=== PATIENT | female | born 1960 | race Caucasian/White ===

== ENCOUNTER 2017-07-19 10:16 | Inpatient (IN) | payer OTHER ==
[~2017-07-19] VITALS: Ht 152.4 cm; Wt 76.5 kg
[~2017-07-19 10:16] MED LIST: Aspir 8181 MG PO; CARV25 PO; CLOP75 PO; DOXY100 PO; INSR10I; INSULANPEN SC; LEVEMIR FL100 UNIT/1 SC; LISI5 PO; MORP15ER PO; Novolog Fl100 UNIT/1 SC; OXYC30ER PO; POTCHL20ER PO; ROSU10TA PO; TORSE20 PO; Zithromax250 MG PO
[2017-07-19 11:08] LABS: BASOPHILS ABSOLUTE AUTO 0.06 K/mm3 (0.00-0.23); BASOPHILS PERCENT AUTO 1 % (0-2); EOSINOPHILS ABSOLUTE AUTO 0.07 K/mm3 (0.00-0.68); EOSINOPHILS PERCENT AUTO 1 % (0-6); Hematocrit 35.7 % (33.0-51.0); Hemoglobin 11.4 g/dL (11.5-16.0); IMMATURE GRAN ABSOLUTE AUTO 0.02 K/mm3 (0.00-0.10); IMMATURE GRAN PERCENT AUTO 0 % (0-1); LYMPHOCYTES ABSOLUTE AUTO 1.05 K/mm3 (0.84-5.20); LYMPHOCYTES PERCENT AUTO 12 % (21-46); MONOCYTES ABSOLUTE AUTO 0.76 K/mm3 (0.16-1.47); MONOCYTES PERCENT AUTO 9 % (4-13); Mean Corpuscular HGB 24.6 pg (26.0-34.0); Mean Corpuscular HGB Conc 31.9 g/dL (31.5-36.5); Mean Corpuscular Volume 77 fL (80-100); Mean Platelet Volume 10.2 fL (9.1-12.4); NEUTROPHILS PERCENT AUTO 78 % (41-73); Platelet Count 285 K/mm3 (150-400); Red Blood Cell Count 4.63 M/mm3 (3.80-5.20); White Blood Cell Count 8.86 K/mm3 (4.00-11.30)
[2017-07-19 11:26] LABS: Alanine Aminotransfer (ALT/SGP 15 U/L (12-78); Albumin, Blood 3.2 g/dL (3.4-5.0); Albumin/Globulin Ratio 0.7 (0.8-1.8); Alk Phos 272 U/L (50-136); Anion Gap 7 mmol/L (6-16); Aspartate Aminotrans (AST/SGOT 13 U/L (12-37); Bilirubin, Total 0.5 mg/dL (0.1-1.0); Blood Urea Nitrogen 10 mg/dL (8-24); Bun/Creatinine Ratio 14.2 (12.0-20.0); CO2, Blood 32 mmol/L (21-32); Calcium, Blood 8.6 mg/dL (8.5-10.1); Chloride, Blood 94 mmol/L (98-108); Globulin, Blood 4.5 g/dL (2.2-4.0); Glomerular Filtration Rate >60 (60-); Glucose, Blood 298 mg/dL (70-99); Potassium, Blood 3.5 mmol/L (3.5-5.5); Sodium, Blood 133 mmol/L (136-145); Total Protein, Blood 7.7 g/dL (6.4-8.2)
[2017-07-19 11:38] LABS: Influenza A Negative (NEGATIVE); Influenza B Negative (NEGATIVE)
[2017-07-19] MEDS ORDERED: MORP60ER PO (11:43)
[2017-07-19 14:16] LABS: PCO2 Arterial 43.2 mmHg (35-45); PO2 Arterial 55.3 mmHg (80-100); pH Blood Arterial 7.48 (7.35-7.45)
[2017-07-19] MEDS ORDERED: FURO20 PO (18:31)
[2017-07-19] MEDS ORDERED: POTCHL10ER PO (18:32)
[2017-07-19] MEDS ORDERED: ALBU4 PO (18:33)
[2017-07-20 04:48] LABS: BASOPHILS ABSOLUTE AUTO 0.03 K/mm3 (0.00-0.23); BASOPHILS PERCENT AUTO 0 % (0-2); EOSINOPHILS ABSOLUTE AUTO 0.22 K/mm3 (0.00-0.68); EOSINOPHILS PERCENT AUTO 3 % (0-6); Hematocrit 32.7 % (33.0-51.0); IMMATURE GRAN ABSOLUTE AUTO 0.02 K/mm3 (0.00-0.10); IMMATURE GRAN PERCENT AUTO 0 % (0-1); LYMPHOCYTES ABSOLUTE AUTO 1.06 K/mm3 (0.84-5.20); LYMPHOCYTES PERCENT AUTO 12 % (21-46); MONOCYTES ABSOLUTE AUTO 0.86 K/mm3 (0.16-1.47); MONOCYTES PERCENT AUTO 10 % (4-13); Mean Corpuscular HGB 24.4 pg (26.0-34.0); Mean Corpuscular HGB Conc 30.6 g/dL (31.5-36.5); Mean Corpuscular Volume 80 fL (80-100); Mean Platelet Volume 10.5 fL (9.1-12.4); NEUTROPHILS ABSOLUTE AUTO 6.34 K/mm3 (1.96-9.15); NEUTROPHILS PERCENT AUTO 74 % (41-73); Platelet Count 239 K/mm3 (150-400); RDW Coefficient Variation 18.3 % (11.7-14.2); RDW Standard Deviation 53.9 fL (35.1-46.3); White Blood Cell Count 8.53 K/mm3 (4.00-11.30)
[2017-07-20 05:09] LABS: Anion Gap 7 mmol/L (6-16); Blood Urea Nitrogen 12 mg/dL (8-24); Bun/Creatinine Ratio 16.8 (12.0-20.0); CO2, Blood 29 mmol/L (21-32); Calcium, Blood 8.1 mg/dL (8.5-10.1); Chloride, Blood 102 mmol/L (98-108); Creatinine, Blood 0.72 mg/dL (0.40-1.00); Glomerular Filtration Rate >60 (60-); Glucose, Blood 117 mg/dL (70-99); Potassium, Blood 3.5 mmol/L (3.5-5.5); Sodium, Blood 138 mmol/L (136-145)
[2017-07-21 04:34] LABS: BASOPHILS ABSOLUTE AUTO 0.03 K/mm3 (0.00-0.23); BASOPHILS PERCENT AUTO 0 % (0-2); EOSINOPHILS ABSOLUTE AUTO 0.11 K/mm3 (0.00-0.68); EOSINOPHILS PERCENT AUTO 1 % (0-6); Hematocrit 32.6 % (33.0-51.0); Hemoglobin 10.2 g/dL (11.5-16.0); IMMATURE GRAN ABSOLUTE AUTO 0.04 K/mm3 (0.00-0.10); IMMATURE GRAN PERCENT AUTO 0 % (0-1); LYMPHOCYTES PERCENT AUTO 8 % (21-46); MONOCYTES ABSOLUTE AUTO 0.73 K/mm3 (0.16-1.47); MONOCYTES PERCENT AUTO 7 % (4-13); Mean Corpuscular HGB 24.2 pg (26.0-34.0); Mean Corpuscular HGB Conc 31.3 g/dL (31.5-36.5); Mean Platelet Volume 10.6 fL (9.1-12.4); NEUTROPHILS ABSOLUTE AUTO 9.22 K/mm3 (1.96-9.15); NEUTROPHILS PERCENT AUTO 84 % (41-73); Platelet Count 270 K/mm3 (150-400); RDW Coefficient Variation 18.4 % (11.7-14.2); RDW Standard Deviation 52.6 fL (35.1-46.3); Red Blood Cell Count 4.21 M/mm3 (3.80-5.20); White Blood Cell Count 11.03 K/mm3 (4.00-11.30)
[2017-07-21 04:36] LABS: Mean Corpuscular Volume 77 fL (80-100)
[2017-07-21 04:53] LABS: Anion Gap 6 mmol/L (6-16); Blood Urea Nitrogen 16 mg/dL (8-24); Bun/Creatinine Ratio 21.4 (12.0-20.0); CO2, Blood 31 mmol/L (21-32); Calcium, Blood 8.4 mg/dL (8.5-10.1); Chloride, Blood 98 mmol/L (98-108); Creatinine, Blood 0.75 mg/dL (0.40-1.00); Glomerular Filtration Rate >60 (60-); Glucose, Blood 139 mg/dL (70-99); Magnesium, Blood 1.7 mg/dL (1.6-2.4); Potassium, Blood 3.2 mmol/L (3.5-5.5); Sodium, Blood 135 mmol/L (136-145)
[2017-07-22 05:22] LABS: BASOPHILS ABSOLUTE AUTO 0.01 K/mm3 (0.00-0.23); BASOPHILS PERCENT AUTO 0 % (0-2); EOSINOPHILS PERCENT AUTO 0 % (0-6); Hematocrit 33.7 % (33.0-51.0); Hemoglobin 10.6 g/dL (11.5-16.0); IMMATURE GRAN ABSOLUTE AUTO 0.02 K/mm3 (0.00-0.10); IMMATURE GRAN PERCENT AUTO 0 % (0-1); LYMPHOCYTES ABSOLUTE AUTO 0.73 K/mm3 (0.84-5.20); LYMPHOCYTES PERCENT AUTO 16 % (21-46); MONOCYTES ABSOLUTE AUTO 0.22 K/mm3 (0.16-1.47); MONOCYTES PERCENT AUTO 5 % (4-13); Mean Corpuscular HGB 24.4 pg (26.0-34.0); Mean Corpuscular HGB Conc 31.5 g/dL (31.5-36.5); Mean Corpuscular Volume 78 fL (80-100); Mean Platelet Volume 10.9 fL (9.1-12.4); NEUTROPHILS ABSOLUTE AUTO 3.51 K/mm3 (1.96-9.15); NEUTROPHILS PERCENT AUTO 78 % (41-73); Platelet Count 289 K/mm3 (150-400); RDW Coefficient Variation 17.9 % (11.7-14.2); RDW Standard Deviation 51.7 fL (35.1-46.3); Red Blood Cell Count 4.35 M/mm3 (3.80-5.20); White Blood Cell Count 4.49 K/mm3 (4.00-11.30)
[2017-07-22 05:42] LABS: Anion Gap 9 mmol/L (6-16); Blood Urea Nitrogen 20 mg/dL (8-24); Bun/Creatinine Ratio 27.3 (12.0-20.0); CO2, Blood 31 mmol/L (21-32); Calcium, Blood 8.6 mg/dL (8.5-10.1); Chloride, Blood 95 mmol/L (98-108); Creatinine, Blood 0.73 mg/dL (0.40-1.00); Glomerular Filtration Rate >60 (60-); Glucose, Blood 376 mg/dL (70-99); Potassium, Blood 3.5 mmol/L (3.5-5.5); Sodium, Blood 135 mmol/L (136-145)
[2017-07-23 08:51] LABS: BASOPHILS ABSOLUTE AUTO 0.03 K/mm3 (0.00-0.23); BASOPHILS PERCENT AUTO 0 % (0-2); EOSINOPHILS PERCENT AUTO 0 % (0-6); Hematocrit 35.6 % (33.0-51.0); Hemoglobin 11.3 g/dL (11.5-16.0); Mean Corpuscular HGB 24.1 pg (26.0-34.0); Mean Corpuscular HGB Conc 31.7 g/dL (31.5-36.5); Mean Corpuscular Volume 76 fL (80-100); Platelet Count 383 K/mm3 (150-400); RDW Coefficient Variation 18.3 % (11.7-14.2); RDW Standard Deviation 50.5 fL (35.1-46.3); Red Blood Cell Count 4.68 M/mm3 (3.80-5.20); White Blood Cell Count 13.46 K/mm3 (4.00-11.30)
[2017-07-23 09:18] LABS: Magnesium, Blood 1.7 mg/dL (1.6-2.4)
[2017-07-23 09:20] LABS: Anion Gap 7 mmol/L (6-16); Blood Urea Nitrogen 28 mg/dL (8-24); Bun/Creatinine Ratio 31.3 (12.0-20.0); CO2, Blood 35 mmol/L (21-32); Calcium, Blood 8.9 mg/dL (8.5-10.1); Chloride, Blood 96 mmol/L (98-108); Creatinine, Blood 0.89 mg/dL (0.40-1.00); Glomerular Filtration Rate >60 (60-); Glucose, Blood 165 mg/dL (70-99); Potassium, Blood 3.1 mmol/L (3.5-5.5); Sodium, Blood 138 mmol/L (136-145)
[2017-07-23 09:23] LABS: IMMATURE GRAN ABSOLUTE AUTO 0.11 K/mm3 (0.00-0.10); IMMATURE GRAN PERCENT AUTO 1 % (0-1); LYMPHOCYTES ABSOLUTE AUTO 1.41 K/mm3 (0.84-5.20); LYMPHOCYTES PERCENT AUTO 11 % (21-46); MONOCYTES PERCENT AUTO 5 % (4-13); NEUTROPHILS ABSOLUTE AUTO 11.21 K/mm3 (1.96-9.15); NEUTROPHILS PERCENT AUTO 83 % (41-73)
[2017-07-24 05:16] LABS: BASOPHILS ABSOLUTE AUTO 0.03 K/mm3 (0.00-0.23); BASOPHILS PERCENT AUTO 0 % (0-2); EOSINOPHILS PERCENT AUTO 0 % (0-6); Hematocrit 38.7 % (33.0-51.0); Hemoglobin 12.1 g/dL (11.5-16.0); IMMATURE GRAN ABSOLUTE AUTO 0.31 K/mm3 (0.00-0.10); IMMATURE GRAN PERCENT AUTO 2 % (0-1); LYMPHOCYTES ABSOLUTE AUTO 1.76 K/mm3 (0.84-5.20); LYMPHOCYTES PERCENT AUTO 11 % (21-46); MONOCYTES ABSOLUTE AUTO 1.13 K/mm3 (0.16-1.47); MONOCYTES PERCENT AUTO 7 % (4-13); Mean Corpuscular HGB Conc 31.3 g/dL (31.5-36.5); Mean Corpuscular Volume 77 fL (80-100); Mean Platelet Volume 10.4 fL (9.1-12.4); NEUTROPHILS ABSOLUTE AUTO 12.63 K/mm3 (1.96-9.15); NEUTROPHILS PERCENT AUTO 80 % (41-73); Platelet Count 425 K/mm3 (150-400); RDW Coefficient Variation 18.6 % (11.7-14.2); RDW Standard Deviation 51.6 fL (35.1-46.3); Red Blood Cell Count 5.04 M/mm3 (3.80-5.20); White Blood Cell Count 15.86 K/mm3 (4.00-11.30)
[2017-07-24 05:49] LABS: Bun/Creatinine Ratio 34.3 (12.0-20.0); Calcium, Blood 8.8 mg/dL (8.5-10.1); Creatinine, Blood 1.02 mg/dL (0.40-1.00); Potassium, Blood 2.8 mmol/L (3.5-5.5)
[2017-07-25 05:11] LABS: BASOPHILS ABSOLUTE AUTO 0.05 K/mm3 (0.00-0.23); BASOPHILS PERCENT AUTO 0 % (0-2); EOSINOPHILS ABSOLUTE AUTO 0.04 K/mm3 (0.00-0.68); EOSINOPHILS PERCENT AUTO 0 % (0-6); Hematocrit 37.7 % (33.0-51.0); IMMATURE GRAN ABSOLUTE AUTO 0.48 K/mm3 (0.00-0.10); IMMATURE GRAN PERCENT AUTO 3 % (0-1); LYMPHOCYTES ABSOLUTE AUTO 3.57 K/mm3 (0.84-5.20); LYMPHOCYTES PERCENT AUTO 23 % (21-46); MONOCYTES ABSOLUTE AUTO 1.54 K/mm3 (0.16-1.47); MONOCYTES PERCENT AUTO 10 % (4-13); Mean Corpuscular HGB 24.3 pg (26.0-34.0); Mean Corpuscular HGB Conc 31.8 g/dL (31.5-36.5); Mean Corpuscular Volume 77 fL (80-100); Mean Platelet Volume 10.3 fL (9.1-12.4); NEUTROPHILS ABSOLUTE AUTO 9.78 K/mm3 (1.96-9.15); NEUTROPHILS PERCENT AUTO 63 % (41-73); Platelet Count 407 K/mm3 (150-400); RDW Coefficient Variation 18.8 % (11.7-14.2); RDW Standard Deviation 51.9 fL (35.1-46.3); Red Blood Cell Count 4.93 M/mm3 (3.80-5.20); White Blood Cell Count 15.46 K/mm3 (4.00-11.30)
[2017-07-25 05:22] LABS: Alanine Aminotransfer (ALT/SGP 10 U/L (12-78); Albumin, Blood 2.9 g/dL (3.4-5.0); Albumin/Globulin Ratio 0.7 (0.8-1.8); Alk Phos 164 U/L (50-136); Anion Gap 6 mmol/L (6-16); Aspartate Aminotrans (AST/SGOT 15 U/L (12-37); Bilirubin, Total 0.4 mg/dL (0.1-1.0); Blood Urea Nitrogen 30 mg/dL (8-24); Bun/Creatinine Ratio 33.9 (12.0-20.0); CO2, Blood 35 mmol/L (21-32); Calcium, Blood 8.6 mg/dL (8.5-10.1); Chloride, Blood 100 mmol/L (98-108); Creatinine, Blood 0.88 mg/dL (0.40-1.00); Glomerular Filtration Rate >60 (60-); Glucose, Blood 75 mg/dL (70-99); Potassium, Blood 3.1 mmol/L (3.5-5.5); Sodium, Blood 141 mmol/L (136-145); Total Protein, Blood 6.9 g/dL (6.4-8.2)
[2017-07-26 04:42] LABS: BASOPHILS ABSOLUTE AUTO 0.07 K/mm3 (0.00-0.23); BASOPHILS PERCENT AUTO 1 % (0-2); EOSINOPHILS ABSOLUTE AUTO 0.05 K/mm3 (0.00-0.68); EOSINOPHILS PERCENT AUTO 0 % (0-6); Hematocrit 39.2 % (33.0-51.0); IMMATURE GRAN ABSOLUTE AUTO 0.53 K/mm3 (0.00-0.10); IMMATURE GRAN PERCENT AUTO 4 % (0-1); LYMPHOCYTES ABSOLUTE AUTO 3.06 K/mm3 (0.84-5.20); LYMPHOCYTES PERCENT AUTO 21 % (21-46); MONOCYTES ABSOLUTE AUTO 1.26 K/mm3 (0.16-1.47); MONOCYTES PERCENT AUTO 9 % (4-13); Mean Corpuscular HGB 23.7 pg (26.0-34.0); Mean Corpuscular HGB Conc 30.6 g/dL (31.5-36.5); Mean Corpuscular Volume 78 fL (80-100); Mean Platelet Volume 10.3 fL (9.1-12.4); NEUTROPHILS ABSOLUTE AUTO 9.52 K/mm3 (1.96-9.15); NEUTROPHILS PERCENT AUTO 66 % (41-73); Platelet Count 411 K/mm3 (150-400); RDW Standard Deviation 52.1 fL (35.1-46.3); Red Blood Cell Count 5.06 M/mm3 (3.80-5.20); White Blood Cell Count 14.49 K/mm3 (4.00-11.30)
[2017-07-26 05:10] LABS: Alanine Aminotransfer (ALT/SGP 13 U/L (12-78); Albumin, Blood 2.9 g/dL (3.4-5.0); Albumin/Globulin Ratio 0.7 (0.8-1.8); Alk Phos 151 U/L (50-136); Anion Gap 6 mmol/L (6-16); Aspartate Aminotrans (AST/SGOT 13 U/L (12-37); Bilirubin, Total 0.4 mg/dL (0.1-1.0); Blood Urea Nitrogen 24 mg/dL (8-24); Bun/Creatinine Ratio 28.5 (12.0-20.0); CO2, Blood 34 mmol/L (21-32); Calcium, Blood 8.9 mg/dL (8.5-10.1); Chloride, Blood 100 mmol/L (98-108); Creatinine, Blood 0.84 mg/dL (0.40-1.00); Glomerular Filtration Rate >60 (60-); Glucose, Blood 88 mg/dL (70-99); Potassium, Blood 3.7 mmol/L (3.5-5.5); Sodium, Blood 140 mmol/L (136-145); Total Protein, Blood 6.9 g/dL (6.4-8.2)
[2017-07-27 05:14] LABS: BASOPHILS ABSOLUTE AUTO 0.04 K/mm3 (0.00-0.23); BASOPHILS PERCENT AUTO 0 % (0-2); EOSINOPHILS ABSOLUTE AUTO 0.13 K/mm3 (0.00-0.68); EOSINOPHILS PERCENT AUTO 1 % (0-6); Hematocrit 35.8 % (33.0-51.0); Hemoglobin 11.1 g/dL (11.5-16.0); IMMATURE GRAN ABSOLUTE AUTO 0.56 K/mm3 (0.00-0.10); IMMATURE GRAN PERCENT AUTO 4 % (0-1); LYMPHOCYTES ABSOLUTE AUTO 3.52 K/mm3 (0.84-5.20); LYMPHOCYTES PERCENT AUTO 24 % (21-46); MONOCYTES ABSOLUTE AUTO 1.34 K/mm3 (0.16-1.47); MONOCYTES PERCENT AUTO 9 % (4-13); Mean Corpuscular HGB 23.8 pg (26.0-34.0); Mean Corpuscular Volume 77 fL (80-100); Mean Platelet Volume 10.5 fL (9.1-12.4); NEUTROPHILS ABSOLUTE AUTO 9.21 K/mm3 (1.96-9.15); NEUTROPHILS PERCENT AUTO 62 % (41-73); Platelet Count 391 K/mm3 (150-400); RDW Coefficient Variation 19.4 % (11.7-14.2); RDW Standard Deviation 53.5 fL (35.1-46.3); Red Blood Cell Count 4.66 M/mm3 (3.80-5.20)
[2017-07-27 06:06] LABS: Anion Gap 7 mmol/L (6-16); Blood Urea Nitrogen 26 mg/dL (8-24); Bun/Creatinine Ratio 29.6 (12.0-20.0); CO2, Blood 32 mmol/L (21-32); Calcium, Blood 8.7 mg/dL (8.5-10.1); Chloride, Blood 96 mmol/L (98-108); Creatinine, Blood 0.88 mg/dL (0.40-1.00); Glomerular Filtration Rate >60 (60-); Glucose, Blood 230 mg/dL (70-99); Potassium, Blood 4.4 mmol/L (3.5-5.5); Sodium, Blood 135 mmol/L (136-145)
[2017-07-28] MEDS ORDERED: GUAI600T33 PO (11:15)
[2017-07-28] MEDS ORDERED: AZIT500 PO (11:15)
[2017-07-28] MEDS ORDERED: HYDRA50 PO (11:16)
[2017-07-28] MEDS ORDERED: LEVO750 PO (11:16)
[2017-07-28] MEDS ORDERED: GAVILAX17 GM PO (11:17)
[2017-07-28] MEDS ORDERED: PRED20 PO (11:18)
[2017-07-28] MEDS ORDERED: PANT40 PO (11:18)
[2017-07-28] MEDS ORDERED: SPIR25 PO (11:20)
[2017-07-28] MEDS ORDERED: ONDA4ODT PO (12:36)
== END 2017-07-28 13:15 | disposition home or self-care (01) | DRG 291 ==
LOC: ER 10:16 → ERHOLD 13:39 → PCU 13:39 → MEDS 13:39 → PCU 17:01 → MEDS 07-23 17:19 → ENPENDDIS 07-28 11:34 → MEDS 07-28 13:15
PROVIDERS: Emergency Medicine; Internal Medicine
PROC: 3E0234Z Introduction of Serum, Toxoid and Vaccine into Muscle, Percutaneous Approach (ICD-10-PCS; principal; 2017-07-19)
DX: I11.0 Hypertensive heart disease with heart failure (principal); J18.9 Pneumonia, unspecified organism; J96.00 Acute respiratory failure, unspecified whether with hypoxia or hypercapnia; E11.40 Type 2 diabetes mellitus with diabetic neuropathy, unspecified; M35.00 Sjogren syndrome, unspecified; J42 Unspecified chronic bronchitis; I50.30 Unspecified diastolic (congestive) heart failure; E11.9 Type 2 diabetes mellitus without complications; D86.9 Sarcoidosis, unspecified; R00.1 Bradycardia, unspecified; G89.4 Chronic pain syndrome; E87.6 Hypokalemia; Z86.73 Personal history of transient ischemic attack (TIA), and cerebral infarction without residual deficits; Z23 Encounter for immunization
CPT/HCPCS: 36415; 36600; 71045; 71046; 80048; 80053; 82803; 82947; 83036; 83605; 83735; 83880; 85025; 87040; 87804; 90670; 93005; 93010; 93308; 93321; 94640; 94644; 94760; 94762; 96361; 96365; 96366; 99285; J0360; J1650; J1815; J1940; J1956; J2001; J2930; J3480; J7030; J7050

== ENCOUNTER 2017-08-02 15:33 | Emergency (ER) | payer OTHER ==
[~2017-08-02] VITALS: Ht 152.4 cm; Wt 69.0 kg
[~2017-08-02 15:33] MED LIST changes: +ALBU4 PO; +AZIT500 PO; +FURO20 PO; +GAVILAX17 GM PO; +GUAI600T33 PO; +HYDRA50 PO; +LEVO750 PO; +MORP60ER PO; +ONDA4ODT PO; +PANT40 PO; +POTCHL10ER PO; +PRED20 PO; +SPIR25 PO
[2017-08-02 16:41] LABS: BASOPHILS ABSOLUTE AUTO 0.01 K/mm3 (0.00-0.23); BASOPHILS PERCENT AUTO 0 % (0-2); EOSINOPHILS PERCENT AUTO 0 % (0-6); Hematocrit 38.8 % (33.0-51.0); Hemoglobin 11.9 g/dL (11.5-16.0); IMMATURE GRAN ABSOLUTE AUTO 0.07 K/mm3 (0.00-0.10); IMMATURE GRAN PERCENT AUTO 1 % (0-1); LYMPHOCYTES ABSOLUTE AUTO 0.75 K/mm3 (0.84-5.20); LYMPHOCYTES PERCENT AUTO 6 % (21-46); MONOCYTES ABSOLUTE AUTO 0.67 K/mm3 (0.16-1.47); MONOCYTES PERCENT AUTO 5 % (4-13); Mean Corpuscular HGB 24.2 pg (26.0-34.0); Mean Corpuscular HGB Conc 30.7 g/dL (31.5-36.5); Mean Corpuscular Volume 79 fL (80-100); Mean Platelet Volume 10.4 fL (9.1-12.4); NEUTROPHILS ABSOLUTE AUTO 11.25 K/mm3 (1.96-9.15); NEUTROPHILS PERCENT AUTO 88 % (41-73); Platelet Count 348 K/mm3 (150-400); RDW Coefficient Variation 19.7 % (11.7-14.2); RDW Standard Deviation 55.2 fL (35.1-46.3); Red Blood Cell Count 4.92 M/mm3 (3.80-5.20); White Blood Cell Count 12.75 K/mm3 (4.00-11.30)
[2017-08-02 17:24] LABS: Albumin, Blood 3.3 g/dL (3.4-5.0); Albumin/Globulin Ratio 0.8 (0.8-1.8); Bilirubin, Total 0.3 mg/dL (0.1-1.0); Bun/Creatinine Ratio 30.5 (12.0-20.0); Calcium, Blood 8.8 mg/dL (8.5-10.1); Creatinine, Blood 1.18 mg/dL (0.40-1.00); Potassium, Blood 4.5 mmol/L (3.5-5.5); Total Protein, Blood 7.3 g/dL (6.4-8.2)
== END 2017-08-02 19:31 | disposition home or self-care (01) ==
LOC: ER 15:33
PROVIDERS: Emergency Medicine
DX: E10.65 Type 1 diabetes mellitus with hyperglycemia (principal); J18.9 Pneumonia, unspecified organism; E10.40 Type 1 diabetes mellitus with diabetic neuropathy, unspecified; I11.0 Hypertensive heart disease with heart failure; I50.9 Heart failure, unspecified; Z88.8 Allergy status to other drugs, medicaments and biological substances; Z79.899 Other long term (current) drug therapy; Z79.82 Long term (current) use of aspirin; Z79.4 Long term (current) use of insulin; Z79.52 Long term (current) use of systemic steroids; Z86.73 Personal history of transient ischemic attack (TIA), and cerebral infarction without residual deficits
CPT/HCPCS: 36415; 71046; 80053; 82947; 85025; 96360; 99283; J1815; J7030

== ENCOUNTER → 2019-04-28 | Outpatient (CLI) | payer OTHER ==
[2019-04-28 13:51] LABS: BASOPHILS PERCENT AUTO 1 % (0-2); EOSINOPHILS ABSOLUTE AUTO 0.46 K/mm3 (0.00-0.68); EOSINOPHILS PERCENT AUTO 4 % (0-6); Hematocrit 44.2 % (33.0-51.0); Hemoglobin 14.2 g/dL (11.5-16.0); IMMATURE GRAN ABSOLUTE AUTO 0.04 K/mm3 (0.00-0.10); IMMATURE GRAN PERCENT AUTO 0 % (0-1); LYMPHOCYTES ABSOLUTE AUTO 2.48 K/mm3 (0.84-5.20); LYMPHOCYTES PERCENT AUTO 20 % (21-46); MONOCYTES ABSOLUTE AUTO 0.85 K/mm3 (0.16-1.47); MONOCYTES PERCENT AUTO 7 % (4-13); Mean Corpuscular HGB 28.1 pg (26.0-34.0); Mean Corpuscular HGB Conc 32.1 g/dL (31.5-36.5); Mean Corpuscular Volume 87 fL (80-100); Mean Platelet Volume 11.2 fL (9.1-12.4); NEUTROPHILS ABSOLUTE AUTO 8.33 K/mm3 (1.96-9.15); NEUTROPHILS PERCENT AUTO 68 % (41-73); Platelet Count 291 K/mm3 (150-400); RDW Coefficient Variation 15.9 % (11.7-14.2); RDW Standard Deviation 50.3 fL (35.1-46.3); Red Blood Cell Count 5.06 M/mm3 (3.80-5.20); White Blood Cell Count 12.26 K/mm3 (4.00-11.30)
[2019-04-28 14:07] LABS: Albumin, Blood 3.4 g/dL (3.4-5.0); Albumin/Globulin Ratio 0.7 (0.8-1.8); Bilirubin, Total 0.4 mg/dL (0.1-1.0); Bun/Creatinine Ratio 18.5 (12.0-20.0); Calcium, Blood 9.3 mg/dL (8.5-10.1); Creatinine, Blood 1.08 mg/dL (0.40-1.00); Globulin, Blood 4.6 g/dL (2.2-4.0); Potassium, Blood 3.5 mmol/L (3.5-5.5)
[2019-04-28 14:36] LABS: Troponin I 0.044 ng/mL (0.000-0.040)
== END ==
LOC: LAB SHORT 13:47 → LAB EV 13:47
PROVIDERS: Emergency Medicine
DX: R60.9 Edema, unspecified (principal); R94.31 Abnormal electrocardiogram [ECG] [EKG]
CPT/HCPCS: 80053; 83880; 84484; 85025

== ENCOUNTER 2019-06-08 07:56 | Day surgery (SDC) | payer OTHER ==
[~2019-06-08 07:56] MED LIST changes: +HYDRA25 PO; -HYDRA50 PO; +MORP30 PO; -MORP60ER PO; -OXYC30ER PO; +Oxycodone HCl20 M1 PO; +POTA10T PO; -POTCHL10ER PO
--- NOTE | 2019-06-08 08:34 | NUR ---
PATIENT PRESENTS TODAY WITH NEW ONSET LUNG ILLNESS SINCE SATURDAY A.M. STATES HISTORY OF SEVERE LUNG ILLNESS WHEN GETS SICK. PATIENT DESIRES TO CONTINUE, RADILOGY CONSULTED AND WE'LL PROCEED SINCE PATIENT IS NOT TACHYCARDIC. IT IS OF NOTE THAT PATIENT'S B/P IS SOMEWHAT ELEVATED THIS A.M., PATIENT STATES SHE WILL TAKE HER B/P MEDICATION SOON SHE GETS HOME. PATIENT STATES HER BLOOD SUGAR WAS 112 THIS A.M. ABOUT 0600 THIS MORNING, HAD BEEN LOW AT 53 AROUND 2000 LAST NIGHT, PATIENT ATE SOME PEANUT BUTTER CRACKERS AND FEELS BETTER NOW. PATIENT IS TYPE I DIABETIC.
--- NOTE | 2019-06-08 09:31 | NUR ---
Discharge instructions reviewed with patient. Patient verbalizes understanding. Copy given to patient to take home. PATIENT DISCHARGED AMBULATORY WITHOUT DIFFICULTY.
[2019-07-30] MEDS ORDERED: TORSE20 PO (16:36)
[2019-07-30] MEDS ORDERED: Humalog100 UNIT/1 SC (16:41)
[2019-07-30] MEDS ORDERED: INSULANPEN SC (16:42)
[2019-07-30] MEDS ORDERED: VENTOLIN HFA INH (16:44)
[2019-07-30] MEDS ORDERED: METO25ER PO (16:47)
[2019-07-30] MEDS ORDERED: NITR.4SL SL (16:50)
[2019-07-30] MEDS ORDERED: NITROGLYCERIN PATCH TOP (16:50)
[2019-07-30] MEDS ORDERED: EZET10 PO (16:50)
== END 2019-06-08 22:59 | disposition home or self-care (01) ==
LOC: CT 07:56 → ORD 07:56 → CT 09:00
DX: R07.9 Chest pain, unspecified (principal); I65.23 Occlusion and stenosis of bilateral carotid arteries; I44.0 Atrioventricular block, first degree; I13.0 Hypertensive heart and chronic kidney disease with heart failure and stage 1 through stage 4 chronic kidney disease, or unspecified chronic kidney disease; E10.22 Type 1 diabetes mellitus with diabetic chronic kidney disease; N18.9 Chronic kidney disease, unspecified; I50.9 Heart failure, unspecified; I25.10 Atherosclerotic heart disease of native coronary artery without angina pectoris; E78.5 Hyperlipidemia, unspecified; E10.42 Type 1 diabetes mellitus with diabetic polyneuropathy; Z86.73 Personal history of transient ischemic attack (TIA), and cerebral infarction without residual deficits; Z79.4 Long term (current) use of insulin; Z79.82 Long term (current) use of aspirin; Z79.02 Long term (current) use of antithrombotics/antiplatelets; Z79.51 Long term (current) use of inhaled steroids; Z79.899 Other long term (current) drug therapy; Z88.8 Allergy status to other drugs, medicaments and biological substances
CPT/HCPCS: 75574; Q9967

== ENCOUNTER → 2020-06-27 | Outpatient (CLI) | payer OTHER ==
[~2020-06-27] MED LIST changes: +EZET10 PO; +Humalog100 UNIT/1 SC; +METO25ER PO; +NITR.4SL SL; +NITROGLYCERIN PATCH TOP; +VENTOLIN HFA INH
[2020-06-27 19:10] LABS: Appearance, Urine Hazy (Clear); Bilirubin, Urine Neg (Neg); Blood, Urine 1+ (Neg); Color, Urine Yellow (P-Yellow); Glucose Qualitative, Urine 1+ (Neg); Ketones, Urine Neg (Neg); Leukocyte Esterase, Urine 3+ (Neg); Nitrite, Urine Neg (Neg); Protein, Urine 2+ (Neg); Urobilinogen, Urine NORM (Normal)
[2020-06-27 19:27] LABS: Bacteria Few /hpf; Red Blood Cells, Urine 0-2 /hpf (0-2); Squamous Epithelial Cells Few /hpf (Few)
[2020-06-27 20:12] LABS: Protein, Urine Random 24.5 mg/dL (0.0-11.9)
[2020-06-27 20:26] LABS: Creatinine, Urine Random 14.9 mg/dL (27.00-270.00); Protein/Creat Ratio, Ur Random 1.6
== END | disposition home or self-care (01) ==
LOC: LAB SHORT 18:11
PROVIDERS: Internal Medicine
DX: N17.9 Acute kidney failure, unspecified (principal); N18.31 Chronic kidney disease, stage 3a
CPT/HCPCS: 81001; 82570; 84156

== ENCOUNTER → 2021-03-24 | Outpatient (CLI) | payer OTHER ==
[2021-03-24 12:45] LABS: Creatinine, Urine Random 67.3 mg/dL (27.00-270.00)
[2021-03-24 13:10] LABS: Microalb/Creat Ratio UR, Rand 826.152 mg/g (0.000-30.000)
== END | disposition home or self-care (01) ==
LOC: LAB SHORT 09:55
PROVIDERS: Internal Medicine Endocrinology, Diabetes & Metabolism
DX: E10.65 Type 1 diabetes mellitus with hyperglycemia (principal)
CPT/HCPCS: 82043; 82570

== ENCOUNTER 2021-06-26 09:30 | Day surgery (SDC) | payer OTHER ==
[~2021-06-26] VITALS: Ht 154.9 cm; Wt 84.6 kg
[2021-06-26] MEDS ORDERED: NOVOLOG100 UNIT/2 (10:11)
== END 2021-06-26 12:47 | disposition home or self-care (01) ==
LOC: ORSCSDS 09:30
PROVIDERS: Student in an Organized Health Care Education/Training Program
PROC: 0D758ZZ Dilation of Esophagus, Via Natural or Artificial Opening Endoscopic (ICD-10-PCS; principal; 2021-06-26 12:30)
PROC: 0DB78ZX Excision of Stomach, Pylorus, Via Natural or Artificial Opening Endoscopic, Diagnostic (ICD-10-PCS; principal; 2021-06-26 12:30)
DX: R13.14 Dysphagia, pharyngoesophageal phase (principal); K29.70 Gastritis, unspecified, without bleeding; Q39.4 Esophageal web; I10 Essential (primary) hypertension; E78.5 Hyperlipidemia, unspecified; I25.10 Atherosclerotic heart disease of native coronary artery without angina pectoris; E11.9 Type 2 diabetes mellitus without complications; Z86.73 Personal history of transient ischemic attack (TIA), and cerebral infarction without residual deficits; Z79.899 Other long term (current) drug therapy; Z79.02 Long term (current) use of antithrombotics/antiplatelets; Z79.82 Long term (current) use of aspirin; Z79.4 Long term (current) use of insulin
CPT/HCPCS: 82947; 88305; 88342; C1726; J2704; J7120

== ENCOUNTER → 2021-11-02 | Outpatient (CLI) | payer OTHER ==
[~2021-11-02] MED LIST changes: +NOVOLOG100 UNIT/2
[2021-11-03 08:53] LABS: Stool Occult Bld Immuno 1 Positive (NEGATIVE)
== END | disposition home or self-care (01) ==
LOC: LAB SHORT 12:50 → LAB 12:50
PROVIDERS: Internal Medicine
DX: Z12.11 Encounter for screening for malignant neoplasm of colon (principal)
CPT/HCPCS: 82274

== ENCOUNTER 2022-03-03 13:31 | Emergency (ER) | payer OTHER ==
[~2022-03-03] VITALS: Ht 152.4 cm; Wt 77.1 kg
[~2022-03-03 13:31] MED LIST changes: -CEPH500 PO
[2022-03-03 14:04] LABS: Source, Urine Clean Catch
[2022-03-03 14:12] LABS: Appearance, Urine Clear (Clear); Bilirubin, Urine Neg (Neg); Blood, Urine 3+ (Neg); Glucose Qualitative, Urine 2+ (Neg); Ketones, Urine Neg (Neg); Leukocyte Esterase, Urine Neg (Neg); Nitrite, Urine Neg (Neg); Protein, Urine 4+ (Neg); Specific Gravity, Urine 1.015 (1.003-1.022); Urobilinogen, Urine NORM (Normal)
[2022-03-03 14:20] LABS: Albumin, Blood 3.7 g/dL (3.4-5.0); Albumin/Globulin Ratio 0.7 (0.8-1.8); Bilirubin, Total 0.6 mg/dL (0.1-1.0); Bun/Creatinine Ratio 13.8 (12.0-20.0); Calcium, Blood 9.8 mg/dL (8.5-10.1); Creatinine, Blood 0.58 mg/dL (0.40-1.00); Globulin, Blood 5.4 g/dL (2.2-4.0); Magnesium, Blood 1.3 mg/dL (1.6-2.4); Potassium, Blood 3.5 mmol/L (3.5-5.5); Total Protein, Blood 9.1 g/dL (6.4-8.2)
[2022-03-03 14:31] LABS: International Normalized Ratio 1.09; Prothrombin Time Results 11.4 Sec (9.7-11.5)
[2022-03-03 14:35] LABS: Color, Urine Pale Yellow (P-Yellow)
[2022-03-03 14:35] LABS: BASOPHILS ABSOLUTE AUTO 0.09 K/mm3 (0.00-0.23); BASOPHILS PERCENT AUTO 1 % (0-2); EOSINOPHILS ABSOLUTE AUTO 0.07 K/mm3 (0.00-0.68); EOSINOPHILS PERCENT AUTO 1 % (0-6); Hematocrit 47.4 % (33.0-51.0); Hemoglobin 15.7 g/dL (11.5-16.0); IMMATURE GRAN ABSOLUTE AUTO 0.04 K/mm3 (0.00-0.10); IMMATURE GRAN PERCENT AUTO 0 % (0-1); LYMPHOCYTES ABSOLUTE AUTO 1.39 K/mm3 (0.84-5.20); LYMPHOCYTES PERCENT AUTO 12 % (21-46); MONOCYTES ABSOLUTE AUTO 0.78 K/mm3 (0.16-1.47); MONOCYTES PERCENT AUTO 7 % (4-13); Mean Corpuscular HGB Conc 33.1 g/dL (31.5-36.5); Mean Corpuscular Volume 91 fL (80-100); NEUTROPHILS ABSOLUTE AUTO 9.35 K/mm3 (1.96-9.15); NEUTROPHILS PERCENT AUTO 80 % (41-73); Platelet Count 318 K/mm3 (150-400); RDW Coefficient Variation 15.8 % (11.7-14.2); RDW Standard Deviation 53.1 fL (35.1-46.3); Red Blood Cell Count 5.24 M/mm3 (3.80-5.20); White Blood Cell Count 11.72 K/mm3 (4.00-11.30)
[2022-03-03 14:56] LABS: Bacteria Few /hpf; Hyaline Casts 0-2 /lpf (0-2); Squamous Epithelial Cells Few /hpf (Few)
[2022-03-03] MEDS ORDERED: CEPH500 PO (16:22)
== END 2022-03-03 19:22 | disposition home or self-care (01) ==
LOC: ER 13:31
PROVIDERS: Emergency Medicine
DX: I11.0 Hypertensive heart disease with heart failure (principal); I50.9 Heart failure, unspecified; E10.9 Type 1 diabetes mellitus without complications; N19 Unspecified kidney failure; Z86.73 Personal history of transient ischemic attack (TIA), and cerebral infarction without residual deficits; Z79.899 Other long term (current) drug therapy; Z79.52 Long term (current) use of systemic steroids; Z79.4 Long term (current) use of insulin
CPT/HCPCS: 36415; 70450; 70496; 70498; 71045; 80053; 81001; 83605; 83690; 83735; 85025; 85610; 85730; J0360; J0696; J2270; J2405; J7030; Q9967

== ENCOUNTER → 2022-03-03 | Outpatient (CLI) | payer OTHER ==
[~2022-03-03] MED LIST changes: +CEPH500 PO
[2022-03-03 13:40] LABS: BASOPHILS ABSOLUTE AUTO 0.08 K/mm3 (0.00-0.23); BASOPHILS PERCENT AUTO 1 % (0-2); EOSINOPHILS ABSOLUTE AUTO 0.12 K/mm3 (0.00-0.68); EOSINOPHILS PERCENT AUTO 1 % (0-6); Hematocrit 46.5 % (33.0-51.0); IMMATURE GRAN ABSOLUTE AUTO 0.05 K/mm3 (0.00-0.10); IMMATURE GRAN PERCENT AUTO 0 % (0-1); LYMPHOCYTES ABSOLUTE AUTO 1.23 K/mm3 (0.84-5.20); LYMPHOCYTES PERCENT AUTO 11 % (21-46); MONOCYTES ABSOLUTE AUTO 0.78 K/mm3 (0.16-1.47); MONOCYTES PERCENT AUTO 7 % (4-13); Mean Corpuscular HGB 29.8 pg (26.0-34.0); Mean Corpuscular HGB Conc 32.3 g/dL (31.5-36.5); Mean Corpuscular Volume 92 fL (80-100); Mean Platelet Volume 10.8 fL (9.1-12.4); NEUTROPHILS ABSOLUTE AUTO 8.99 K/mm3 (1.96-9.15); NEUTROPHILS PERCENT AUTO 80 % (41-73); Platelet Count 302 K/mm3 (150-400); RDW Standard Deviation 54.2 fL (35.1-46.3); Red Blood Cell Count 5.04 M/mm3 (3.80-5.20); White Blood Cell Count 11.25 K/mm3 (4.00-11.30)
[2022-03-03 14:09] LABS: Bun/Creatinine Ratio 10.2 (12.0-20.0); Calcium, Blood 9.4 mg/dL (8.5-10.1); Creatinine, Blood 0.88 mg/dL (0.40-1.00); Potassium, Blood 2.9 mmol/L (3.5-5.5)
== END ==
LOC: LAB SHORT 13:26 → LAB 13:26
PROVIDERS: Physician Assistant Surgical
DX: R07.9 Chest pain, unspecified (principal); R53.83 Other fatigue
CPT/HCPCS: 80048; 84443; 85025

== ENCOUNTER → 2023-01-31 | Outpatient (CLI) | payer OTHER ==
[~2023-01-31] MED LIST changes: +CEPH500 PO
== END ==
LOC: LAB SHORT 13:52 → LAB 13:52
DX: N18.32 Chronic kidney disease, stage 3b (principal)
CPT/HCPCS: 83970

== ENCOUNTER → 2023-03-25 | Outpatient (CLI) | payer OTHER ==
[2023-03-25 17:48] LABS: BASOPHILS ABSOLUTE AUTO 0.13 K/mm3 (0.00-0.23); BASOPHILS PERCENT AUTO 1 % (0-2); EOSINOPHILS PERCENT AUTO 1 % (0-6); Hematocrit 43.7 % (33.0-51.0); Hemoglobin 14.3 g/dL (11.5-16.0); Mean Corpuscular HGB 29.9 pg (26.0-34.0); Mean Corpuscular HGB Conc 32.7 g/dL (31.5-36.5); Mean Corpuscular Volume 91 fL (80-100); RDW Coefficient Variation 15.9 % (11.7-14.2); RDW Standard Deviation 52.9 fL (35.1-46.3); Red Blood Cell Count 4.79 M/mm3 (3.80-5.20); White Blood Cell Count 11.67 K/mm3 (4.00-11.30)
[2023-03-25 17:49] LABS: IMMATURE GRAN ABSOLUTE AUTO 0.45 K/mm3 (0.00-0.10); IMMATURE GRAN PERCENT AUTO 4 % (0-1); LYMPHOCYTES PERCENT AUTO 15 % (21-46); MONOCYTES ABSOLUTE AUTO 1.43 K/mm3 (0.16-1.47); MONOCYTES PERCENT AUTO 12 % (4-13); Mean Platelet Volume 10.7 fL (9.1-12.4); NEUTROPHILS ABSOLUTE AUTO 7.76 K/mm3 (1.96-9.15); NEUTROPHILS PERCENT AUTO 66 % (41-73); Platelet Count 335 K/mm3 (150-400)
[2023-03-25 17:57] LABS: Albumin, Blood 3.1 g/dL (3.4-5.0); Albumin/Globulin Ratio 0.6 (0.8-1.8); Bilirubin, Total 0.4 mg/dL (0.1-1.0); Bun/Creatinine Ratio 22.4 (12.0-20.0); Calcium, Blood 9.7 mg/dL (8.5-10.1); Creatinine, Blood 1.56 mg/dL (0.40-1.00); Globulin, Blood 4.9 g/dL (2.2-4.0); Potassium, Blood 5.1 mmol/L (3.5-5.5)
== END ==
LOC: LAB 17:44 → LAB SHORT 17:44
PROVIDERS: Family Medicine
DX: R11.2 Nausea with vomiting, unspecified (principal)
CPT/HCPCS: 80053; 85025

== ENCOUNTER → 2023-05-27 | Outpatient (CLI) | payer OTHER ==
[2023-05-27 19:54] LABS: Adenovirus F 40/41 Not Detected (NOT DETECT); Astrovirus Not Detected (NOT DETECT); Campylobacter Sp Not Detected (NOT DETECT); Cryptosporidium Not Detected (NOT DETECT); Cyclospora Cayetanensis Not Detected (NOT DETECT); E. Coli O157 Not Detected (NOT DETECT); Entamoeba Histolytica Not Detected (NOT DETECT); Enteroaggregative E. coli-EAEC Not Detected (NOT DETECT); Enteropathogenic E. coli-EPEC Not Detected (NOT DETECT); Enterotoxigenic E. coli-ETEC Not Detected (NOT DETECT); Giardia Lamblia Not Detected (NOT DETECT); Norovirus GI/GII Not Detected (NOT DETECT); Plesiomonas Shigelloides Not Detected (NOT DETECT); Rotavirus A Not Detected (NOT DETECT); Salmonella Sp Not Detected (NOT DETECT); Sapovirus Not Detected (NOT DETECT); Shiga Toxin-prod E. coli-STEC Not Detected (NOT DETECT); Shigella/Enteroin E. coli-EIEC Not Detected (NOT DETECT); Vibrio Cholerae Not Detected (NOT DETECT); Vibrio Sp Not Detected (NOT DETECT); Yersinia Enterocolitica Not Detected (NOT DETECT)
== END | disposition home or self-care (01) ==
LOC: LAB SHORT 16:26 → LAB 16:26
PROVIDERS: Internal Medicine
DX: K52.9 Noninfective gastroenteritis and colitis, unspecified (principal)
CPT/HCPCS: 87507; 89055

== ENCOUNTER 2023-10-14 10:02 | Day surgery (SDC) | payer OTHER ==
[~2023-10-14] VITALS: Ht 152.4 cm; Wt 75.7 kg
[~2023-10-14 10:02] MED LIST changes: +BUPR75 PO
[2023-10-14] MEDS ORDERED: Lactated Ringer's 1,000 ML IV SCH (10:30)
[2023-10-14 10:50] VITALS: BP 221/86
[2023-10-14 10:52] VITALS: BP 211/88
[2023-10-14] MEDS ORDERED: DILT120 PO (11:16)
[2023-10-14] MEDS ORDERED: LANTUS SOL100 UNIT/1 SQ (11:19)
--- NOTE | 2023-10-14 11:21 | NUR ---
Ambulatory in Day Surgery Patient confirms NPO status and agrees with scheduled surgery. Patient States Post-Procedure ride home has been arranged. Pre-Op teaching done. Pt verbalizes understanding. History, Chart, Medications and Allergies reviewed before start of procedure.
[2023-10-14] MEDS ORDERED: Dextrose 50% 50 ML Syringe IV ONE (11:25)
[2023-10-14] MEDS ORDERED: Dextrose 5% 250 ML IV ONE ×2 (11:26→11:30)
[2023-10-14] MEDS ORDERED: propofoL 40 ML IV ONE (11:30)
--- NOTE | 2023-10-14 11:36 | NUR ---
10/14/23 1136 Camelia Tomlinson History, Chart, Medications and Allergies reviewed before start of procedure.INA SCHMID PROVIDING ANESTHESIA, SEE RECORD
[2023-10-14 12:05] VITALS: BP 171/82
[2023-10-14 12:15] VITALS: BP 184/83
--- NOTE | 2023-10-14 12:44 | NUR ---
1230- PATIENT UP TO DRESS AND AMBULATE TO BR. GAIT STEADY. NO C/O VERBALIZED. RIDE ARRANGED HOME WITH PATIENT'S FRIEND, OZ. Discharge instructions reviewed with patient. Patient verbalizes understanding. Copy given to patient to take home. Patient confirms follow-up appointment with Dr. Chaudhary.
== END 2023-10-14 12:39 | disposition home or self-care (01) ==
LOC: ORSCMMR 10:02 → ORD 11:30 → ORSCMMR 11:45
PROVIDERS: Internal Medicine Gastroenterology
PROC: 0DBM8ZX Excision of Descending Colon, Via Natural or Artificial Opening Endoscopic, Diagnostic (ICD-10-PCS; principal; 2023-10-14 11:45)
PROC: 0DBN8ZX Excision of Sigmoid Colon, Via Natural or Artificial Opening Endoscopic, Diagnostic (ICD-10-PCS; principal; 2023-10-14 11:45)
PROC: 0DBL8ZX Excision of Transverse Colon, Via Natural or Artificial Opening Endoscopic, Diagnostic (ICD-10-PCS; principal; 2023-10-14 11:45)
PROC: 0DBK8ZX Excision of Ascending Colon, Via Natural or Artificial Opening Endoscopic, Diagnostic (ICD-10-PCS; principal; 2023-10-14 11:45)
PROC: 0DBC8ZX Excision of Ileocecal Valve, Via Natural or Artificial Opening Endoscopic, Diagnostic (ICD-10-PCS; principal; 2023-10-14 11:45)
DX: R93.5 Abnormal findings on diagnostic imaging of other abdominal regions, including retroperitoneum (principal); R10.9 Unspecified abdominal pain; K52.9 Noninfective gastroenteritis and colitis, unspecified; I10 Essential (primary) hypertension; D86.9 Sarcoidosis, unspecified; I25.10 Atherosclerotic heart disease of native coronary artery without angina pectoris; Z86.73 Personal history of transient ischemic attack (TIA), and cerebral infarction without residual deficits; K74.60 Unspecified cirrhosis of liver; E10.8 Type 1 diabetes mellitus with unspecified complications; E66.9 Obesity, unspecified; Z68.32 Body mass index [BMI] 32.0-32.9, adult; Z79.4 Long term (current) use of insulin; Z79.899 Other long term (current) drug therapy
CPT/HCPCS: 82947; J2704; J7060; J7120

== ENCOUNTER 2024-03-23 10:44 | Inpatient (IN) | payer OTHER ==
[~2024-03-23] VITALS: Ht 154.9 cm; Wt 72.6 kg
[~2024-03-23 10:44] MED LIST changes: +BUPR100ER PO; +Budeprion Xl300 MG PO; +DILT120 PO; +GABA100 PO; +LANTUS SOL100 UNIT/1 SQ; -LISI5 PO; +METO5A PO; +MS Contin15 MG; -NOVOLOG100 UNIT/2; +NOVOLOG100 UNIT/2 SC; +TOUJEO SOL300 UNIT/2 SC; +ZESTRIL40 M1 PO; +ZOLP5 PO
[2024-03-23 11:16] LABS: BASOPHILS ABSOLUTE AUTO 0.05 K/mm3 (0.00-0.23); BASOPHILS PERCENT AUTO 0 % (0-2); EOSINOPHILS ABSOLUTE AUTO 0.09 K/mm3 (0.00-0.68); EOSINOPHILS PERCENT AUTO 1 % (0-6); Hematocrit 44.8 % (33.0-51.0); Hemoglobin 15.6 g/dL (11.5-16.0); IMMATURE GRAN ABSOLUTE AUTO 0.14 K/mm3 (0.00-0.10); IMMATURE GRAN PERCENT AUTO 1 % (0-1); LYMPHOCYTES ABSOLUTE AUTO 0.95 K/mm3 (0.84-5.20); LYMPHOCYTES PERCENT AUTO 6 % (21-46); MONOCYTES PERCENT AUTO 9 % (4-13); Mean Corpuscular HGB 32.5 pg (26.0-34.0); Mean Corpuscular HGB Conc 34.8 g/dL (31.5-36.5); Mean Corpuscular Volume 93 fL (80-100); Mean Platelet Volume 12.6 fL (9.1-12.4); NEUTROPHILS ABSOLUTE AUTO 14.13 K/mm3 (1.96-9.15); NEUTROPHILS PERCENT AUTO 83 % (41-73); Platelet Count 233 K/mm3 (150-400); RDW Coefficient Variation 14.5 % (11.7-14.2); RDW Standard Deviation 49.2 fL (35.1-46.3); White Blood Cell Count 16.96 K/mm3 (4.00-11.30)
[2024-03-23] MEDS ORDERED: ROSUVASTATIN CA40 MG PO (11:51)
[2024-03-23] MEDS ORDERED: Ipratropium/Albuterol SulF 2.5-0.5MG/3 ML Amp INH ONE (12:30)
[2024-03-23] MEDS ORDERED: NS 1,000 ML IV SCH ×2 (12:30→15:20)
[2024-03-23] MEDS ORDERED: Nystatin 100,000 Unit/ML Susp 5 ML UDC SS ONE (12:30)
[2024-03-23 12:31] LABS: Albumin, Blood 3.5 g/dL (3.4-5.0); Albumin/Globulin Ratio 0.8 (0.8-1.8); Bilirubin, Total 1.2 mg/dL (0.1-1.0); Bun/Creatinine Ratio 35.7 (12.0-20.0); Calcium, Blood 9.7 mg/dL (8.5-10.1); Creatinine, Blood 4.12 mg/dL (0.40-1.00); Globulin, Blood 4.3 g/dL (2.2-4.0); Potassium, Blood 4.9 mmol/L (3.5-5.5); Total Protein, Blood 7.8 g/dL (6.4-8.2)
[2024-03-23 13:49] LABS: Base Excess Venous 3.4 mmol/L; Bicarbonate Venous 25.7 mmol/L (24.0-30.0); PCO2 Venous 52.4 mmHg (38-42); pH Blood Venous 7.35 (7.34-7.37)
[2024-03-23 14:41] LABS: Source, Urine Straight Cath
[2024-03-23 14:49] LABS: Bun/Creatinine Ratio 39.8 (12.0-20.0); Calcium, Blood 9.2 mg/dL (8.5-10.1); Creatinine, Blood 3.62 mg/dL (0.40-1.00); Potassium, Blood 4.3 mmol/L (3.5-5.5)
[2024-03-23 15:01] LABS: Appearance, Urine Clear (Clear); Bilirubin, Urine Neg (Neg); Blood, Urine 2+ (Neg); Color, Urine Yellow (P-Yellow); Glucose Qualitative, Urine 4+ (Neg); Ketones, Urine Neg (Neg); Leukocyte Esterase, Urine 2+ (Neg); Nitrite, Urine Neg (Neg); Protein, Urine 2+ (Neg); Urobilinogen, Urine NORM (Normal)
[2024-03-23] MEDS ORDERED: FLU VACC TS2024-25(6MOS UP)/PF 45 MCG/0.5 ML SYRINGE IM SCH (15:20)
[2024-03-23 15:38] LABS: Bacteria Many /hpf; Squamous Epithelial Cells Mod /hpf (Few); Transitional Epithelial Cells Few /hpf (0-Rare); Uric Acid Crystals Mod /hpf
[2024-03-23 15:39] LABS: Hyaline Casts 0-2 /lpf (0-2)
[2024-03-23] MEDS ORDERED: Insulin Glargine-Yfgn 100 Unit/mL 3 ML SYR SC SCH (16:00)
[2024-03-23] MEDS ORDERED: Insulin Human Lispro 100 Units/ML 3ML Syringe SC SCH (16:30)
[2024-03-23] MEDS ORDERED: OxyCODONE HCL 5 MG TAB PO PRN (17:50)
[2024-03-23 18:00] VITALS: BP 172/67
[2024-03-23] MEDS ORDERED: CefTRIAXone Sodium 2,000 MG in NS 100 ML IV SCH (18:00)
[2024-03-23] MEDS ORDERED: NS 250 ML IV PRN (18:05)
--- NOTE | 2024-03-23 19:29 | NUR ---
PATIENT ADMITTED TO FLOOR AT 1751 FROM ER. PATIENT IS A&OX4. PATIENT STARTED ON IV ABX AND RCVD PRN PAIN MEDS PER EMAR. PATIENT RCVD FAST ACING AND LONG ACTING INSULINS IN ER PER REPORT, CBG REMAINS ELEVATED AT 438. PATIENT ON RA. PATIENT IN NEED OF NEW TELE BOX, ORDERS ACKNOWLEDED. PATIENT IS ABLE TO TAKE MEDS WHOLE WITH WATER. PATIENT HAS BLE EDEMA WITH REDNESS TO LOWER LEFT LEG AND DRY, FLAKY SKIN TO BILATERAL FEET. PATIENTS BED IS IN THE LOWEST POSITION AND CALL LIGHT IS WITHIN REACH.
[2024-03-23 19:43] LABS: Bun/Creatinine Ratio 44.4 (12.0-20.0); Calcium, Blood 9.7 mg/dL (8.5-10.1); Creatinine, Blood 3.02 mg/dL (0.40-1.00); Potassium, Blood 4.1 mmol/L (3.5-5.5)
[2024-03-23 20:11] VITALS: BP 152/69
[2024-03-23] MEDS ORDERED: Nystatin 100,000 Unit/ML Susp 5 ML UDC MT SCH (21:00)
[2024-03-23] MEDS ORDERED: HydrALAZINE HCl 25 MG Tab PO SCH (21:00)
[2024-03-23] MEDS ORDERED: Gabapentin 100 MG Cap PO SCH (21:00)
[2024-03-23] MEDS ORDERED: BUPR150ER PO (23:40)
[2024-03-23] MEDS ORDERED: DILT120 PO (23:41)
[2024-03-23] MEDS ORDERED: EZET10 PO (23:41)
[2024-03-24] VITALS (7 sets, daily range): BP systolic 141–187; BP diastolic 51–89
[2024-03-24] MEDS ORDERED: FentaNYL Citrate 50 MCG/ML 2 ML Injection IV PRN (00:55)
[2024-03-24] MEDS ORDERED: HydrALAZINE HCl 20 MG / ML 1ML Vial IV ONE (03:50)
[2024-03-24] MEDS ORDERED: Oxymetazoline 0.05% Nasal Relief Spray 15mL BTL PRN (04:40)
--- NOTE | 2024-03-24 05:08 | NUR ---
SUMMARY: PT A/OX4 AND IS ABLE TO SPECIFY NEEDS BUT HAS SLOW SPEECH THAT TRAILS AT TIMES. SHE'S UP W/SBA D/T WEAKNESS, GENERALIZED PAIN AND UNSTEADY GAIT. PT REPORTS "ALLOVER" PAIN UNRELIEVED FROM Q4H PRN OXYCODONE. MADE AWARE W/FENTANYL 25-50MCG Q4H PRN RX'D AND RECEIVED FOR BETTER EFFECT. BP WAS ALSO ELEVATED THIS AM W/HYDRALAZINE 10MG IV X1 GIVEN, WILL MONITOR FOR EFFECT. PT ADDED TO CX LIST FOR ROSALINA AND NS COMMENCED AT 125 ML/HR. PT C/O "STUFFY NOSE" W/NASAL DECONGESTANT SPRAY RX'D PER EMAR. BLE'S ARE EDEMATOUS AND DISCOLORED BUT LLE IS MORE SWOLLEN/REDDENED THAN RLE. FEET APPEAR DRY AND FLAKEY W/CREAM APPLIED PRN. SHE'S NSR ON TELE AT 70'S-90'S BPM. VSS/AFEBRILE, NO ACUTE CHANGES. WCTM AND REPORT TO DAY RN.
[2024-03-24 05:29] LABS: BASOPHILS ABSOLUTE AUTO 0.04 K/mm3 (0.00-0.23); BASOPHILS PERCENT AUTO 0 % (0-2); EOSINOPHILS ABSOLUTE AUTO 0.19 K/mm3 (0.00-0.68); EOSINOPHILS PERCENT AUTO 1 % (0-6); Hematocrit 37.9 % (33.0-51.0); Hemoglobin 13.2 g/dL (11.5-16.0); IMMATURE GRAN ABSOLUTE AUTO 0.26 K/mm3 (0.00-0.10); IMMATURE GRAN PERCENT AUTO 2 % (0-1); LYMPHOCYTES ABSOLUTE AUTO 0.95 K/mm3 (0.84-5.20); LYMPHOCYTES PERCENT AUTO 6 % (21-46); MONOCYTES ABSOLUTE AUTO 1.67 K/mm3 (0.16-1.47); MONOCYTES PERCENT AUTO 11 % (4-13); Mean Corpuscular HGB 32.5 pg (26.0-34.0); Mean Corpuscular HGB Conc 34.8 g/dL (31.5-36.5); Mean Corpuscular Volume 93 fL (80-100); NEUTROPHILS ABSOLUTE AUTO 12.41 K/mm3 (1.96-9.15); NEUTROPHILS PERCENT AUTO 80 % (41-73); Platelet Count 236 K/mm3 (150-400); RDW Coefficient Variation 14.6 % (11.7-14.2); RDW Standard Deviation 49.3 fL (35.1-46.3); Red Blood Cell Count 4.06 M/mm3 (3.80-5.20); White Blood Cell Count 15.52 K/mm3 (4.00-11.30)
[2024-03-24 05:59] LABS: Albumin, Blood 2.9 g/dL (3.4-5.0); Albumin/Globulin Ratio 0.8 (0.8-1.8); Bun/Creatinine Ratio 59.9 (12.0-20.0); Calcium, Blood 9.1 mg/dL (8.5-10.1); Creatinine, Blood 1.77 mg/dL (0.40-1.00); Globulin, Blood 3.5 g/dL (2.2-4.0); Potassium, Blood 3.9 mmol/L (3.5-5.5); Total Protein, Blood 6.4 g/dL (6.4-8.2)
[2024-03-24] MEDS ORDERED: NS 1,000 ML IV SCH (08:05)
[2024-03-24] MEDS ORDERED: Ezetimibe 10 MG Tab PO SCH (09:00)
[2024-03-24] MEDS ORDERED: Heparin Sodium,Porcine 5,000 UNIT/0.5 ML SDV SC SCH (09:00)
[2024-03-24] MEDS ORDERED: Gabapentin 100 MG Cap PO SCH (09:00)
[2024-03-24] MEDS ORDERED: Rosuvastatin Calcium 10 MG Tab PO SCH (09:00)
[2024-03-24] MEDS ORDERED: OxyCODONE HCL 5 MG TAB PO PRN (12:55)
--- NOTE | 2024-03-24 18:21 | NUR ---
PATIENT IS A&OX4, ABLE TO VERBALIZE NEEDS. PLEASANT AND COOPERATIVE OF CARES. SBAX1 TO TOILET. GENERALIZED WEAKNESS. PATIENT PAINFUL 8/10 TREATED PER EMAR. FLUIDS NS RUNNING AT 75ML/HR. BED IN LOWEST POSITION AND CALL LIGHT WITHIN REACH.
[2024-03-25 02:21] VITALS: BP 211/87
[2024-03-25] MEDS ORDERED: HydrALAZINE HCl 20 MG / ML 1ML Vial IV ONE ×2 (03:40→08:20)
--- NOTE | 2024-03-25 04:12 | NUR ---
SUMMARY: PT ALERT ORIENTED X 4 ABLE TO VERBALIZE NEEDS. C/O ALL OVER PAIN MEDICATED WITH OXYCODONE AND FENTANYL PER SEP. SBA TO BATHROOM. HAD 2X LOOSE STOOLS THIS SHIFT. BP WAS ELEVATED AT 211/87. REPEAT BP WAS 209/88. CALLED MD AND RECIEVED A ORDER FOR A ONE TIME HYDRALAZINE 10MG IV. FS WAS 305 AND REQUIRED 4 UNITS OF INSULIN. PT RESTING IN BED AT THIS TIME.
[2024-03-25 05:33] LABS: Hematocrit 40.4 % (33.0-51.0); Hemoglobin 14.4 g/dL (11.5-16.0)
[2024-03-25 06:20] LABS: Albumin, Blood 2.8 g/dL (3.4-5.0); Anion Gap 12 mmol/L (3-11); Blood Urea Nitrogen 54 mg/dL (8-24); Bun/Creatinine Ratio 62.1 (12.0-20.0); CO2, Blood 25 mmol/L (21-32); Calcium, Blood 8.4 mg/dL (8.5-10.1); Chloride, Blood 106 mmol/L (98-108); Creatinine, Blood 0.87 mg/dL (0.40-1.00); Glomerular Filtration Rate 75 (60-); Glucose, Blood 269 mg/dL (70-99); Magnesium, Blood 1.1 mg/dL (1.6-2.4); Phosphorus, Blood 1.8 mg/dL (2.5-4.9); Potassium, Blood 4.5 mmol/L (3.5-5.5); Sodium, Blood 138 mmol/L (136-145)
[2024-03-25] MEDS ORDERED: NS 1,000 ML IV SCH (06:40)
[2024-03-25] MEDS ORDERED: Sodium Phosphate 20 MM in Dextrose 5% 500 ML IV STA (06:48)
[2024-03-25] MEDS ORDERED: Magnesium Sulf 2 GM/Water 50ML 50 ML IV ONE (06:50)
[2024-03-25 07:23] VITALS: BP 208/86
--- NOTE | 2024-03-25 08:10 | NUR ---
PATIENT BP >200 WITH C/O SEVERE PAIN. PRN OXYCODONE 15MG AND ALL ROUTINE BP MEDS ADMINISTERED AFTER WHICH PATIENT IMMEDIATELY VOMITED. ALL MEDICATIONS IDENTIFIED AND ACCOUTNED FOR IN EMESIS. CALL TO DR ALMARAZ FOR STAT ORDER OF HYDRALAZINE 20MG IV AND 4MG ZOFRAN IV NOW. RECEHCK BP IN 30 MINS AND NOTIFY HIM IF NO IMPROVEMENT.
[2024-03-25] MEDS ORDERED: Ondansetron HCl 2 MG / ML 2ML Vial IV ONE (08:20)
[2024-03-25] MEDS ORDERED: dilTIAZem HCL 120 MG CAP.CD PO SCH (09:00)
[2024-03-25] MEDS ORDERED: buPROPion HCL 150 MG TAB.SR.12H PO SCH (09:00)
[2024-03-25 09:10] VITALS: BP 142/64
[2024-03-25 10:25] LABS: BASOPHILS ABSOLUTE AUTO 0.09 K/mm3 (0.00-0.23); BASOPHILS PERCENT AUTO 1 % (0-2); EOSINOPHILS ABSOLUTE AUTO 0.11 K/mm3 (0.00-0.68); EOSINOPHILS PERCENT AUTO 1 % (0-6); Hematocrit 40.8 % (33.0-51.0); Hemoglobin 13.6 g/dL (11.5-16.0); IMMATURE GRAN ABSOLUTE AUTO 0.65 K/mm3 (0.00-0.10); IMMATURE GRAN PERCENT AUTO 4 % (0-1); LYMPHOCYTES ABSOLUTE AUTO 1.11 K/mm3 (0.84-5.20); LYMPHOCYTES PERCENT AUTO 8 % (21-46); MONOCYTES ABSOLUTE AUTO 1.64 K/mm3 (0.16-1.47); MONOCYTES PERCENT AUTO 11 % (4-13); Mean Corpuscular HGB 31.9 pg (26.0-34.0); Mean Corpuscular HGB Conc 33.3 g/dL (31.5-36.5); Mean Corpuscular Volume 96 fL (80-100); Mean Platelet Volume 11.4 fL (9.1-12.4); NEUTROPHILS ABSOLUTE AUTO 11.06 K/mm3 (1.96-9.15); NEUTROPHILS PERCENT AUTO 75 % (41-73); Platelet Count 242 K/mm3 (150-400); RDW Coefficient Variation 15.4 % (11.7-14.2); RDW Standard Deviation 54.4 fL (35.1-46.3); Red Blood Cell Count 4.26 M/mm3 (3.80-5.20); White Blood Cell Count 14.66 K/mm3 (4.00-11.30)
[2024-03-25 10:39] VITALS: BP 163/64
--- NOTE | 2024-03-25 10:41 | NUR ---
PATIENT CALLED WITH C/O FEELING LIKE HANDS WERE SWELLING AND COLD AND MOUTH FELT NUMB AND SWELLING. NO NEW NEURO DEFICITS NOTICED. VSS.
[2024-03-25 15:36] VITALS: BP 164/55
--- NOTE | 2024-03-25 15:55 | NUR ---
Alejandrina with [facility] to patient bedside to discuss food insecurities. She brought patient three bags of food which her neighbor will be coming to turkey picker and dropping off at her home for her.
--- NOTE | 2024-03-25 18:33 | NUR ---
DAY SHIFT SUMMARY: A&Ox4. PLEASANT AND COOPERATIVE WITH CARE. CALLS APPROPRIATELY AND IS ABLE TO ADVOCATE NEEDS EFFECTIVELY. SBA c AMBULATION. MEDS WHOLE WITH FLUIDS. NO ASPIRATION PRECAUTIONS. HYPERTENSIVE THIS MORNING AND MORNING ANTIHYPERTENSIVES GIVEN WHICH SHE PROMPTLY VOMITED - ALL MEDS VISUALIZED AND ACCOUNTED FOR IN EMESIS. SHE DID REPORT 10/10 PAIN. IV FENTANYL 50MCG, HYDRALAZINE 20MG AND ZOFRAN 4MG ADMINISTERED AND RECHECK SBP 140s. KARI WITH [facility] TO BEDSIDE TO PROVIDE WITH FOOD AND FINANCIAL RESOURCES. CRITICAL MAG 1.1 REPLACED WELL SODIUM PHOS. WOULD LIKE HOME HEALTH AT DISCHARGE. MAINTENANCE FLUIDS NS @ 50mL/hr. BED IN LOWEST POSITION. CALL LIGHT WITHIN REACH. ALL NEEDS MET. REPORT TO ONCOMING RN.
[2024-03-25 19:41] VITALS: BP 177/63
[2024-03-25] MEDS ORDERED: HydrALAZINE HCl 50 MG Tab PO SCH (21:00)
[2024-03-26 05:11] VITALS: BP 200/85
[2024-03-26] MEDS ORDERED: HydrALAZINE HCl 20 MG / ML 1ML Vial IV PRN (05:25)
[2024-03-26 05:37] LABS: Hematocrit 39.8 % (33.0-51.0); Hemoglobin 13.1 g/dL (11.5-16.0)
[2024-03-26 06:26] LABS: Albumin, Blood 2.5 g/dL (3.4-5.0); Anion Gap 11 mmol/L (3-11); Blood Urea Nitrogen 21 mg/dL (8-24); Bun/Creatinine Ratio 36.2 (12.0-20.0); CO2, Blood 23 mmol/L (21-32); Calcium, Blood 7.9 mg/dL (8.5-10.1); Chloride, Blood 104 mmol/L (98-108); Creatinine, Blood 0.58 mg/dL (0.40-1.00); Glomerular Filtration Rate 102 (60-); Glucose, Blood 194 mg/dL (70-99); Phosphorus, Blood 2.1 mg/dL (2.5-4.9); Potassium, Blood 4.7 mmol/L (3.5-5.5); Sodium, Blood 133 mmol/L (136-145)
[2024-03-26 06:28] LABS: Magnesium, Blood 1.1 mg/dL (1.6-2.4)
--- NOTE | 2024-03-26 06:46 | NUR ---
SHIFT SUMMARY: Pt is admitted for acute renal failure and is a DNR. is alert and able to make needs known. ADLs have been SBA. pain has been managed with PRN pain medication. Telly reports sinus in the 60s with a 1 deg. Critical lab value of mag 1.[address] Villarreal while he was doing rounds. He put in orders for oral replacement.
[2024-03-26] MEDS ORDERED: Magnesium Sulf 2 GM/Water 50ML 50 ML IV STA (06:50)
[2024-03-26] MEDS ORDERED: Sodium Phosphate 20 MM in Dextrose 5% 500 ML IV ONE (07:30)
[2024-03-26 07:51] VITALS: BP 192/71
[2024-03-26] MEDS ORDERED: Losartan Potassium 25 MG Tab PO SCH ×2 (09:00→21:00)
[2024-03-26] MEDS ORDERED: Sodium Phosphate Mono/Dibasic 250 MG Tab PO SCH (09:00)
[2024-03-26] MEDS ORDERED: Magnesium Oxide 400 MG Tab PO SCH (09:00)
[2024-03-26 14:04] VITALS: BP 179/70
--- NOTE | 2024-03-26 14:48 | NUR ---
ORAL HYGIENIST REQUESTED MAGIC MOUTH WASH FOR PT'S THRUSH. DR ALMARAZ HAD APPROVED THIS REQUEST, BUT UPON REVIEW OF MEDICATION PT IS FOUND TO HAVE A SEVER ALLERGY TO PREDISONE. WILL CONTINUE PREVIOUS ORDER OF NYSTATIN SWISH AND SWALLOW.
[2024-03-26 15:39] VITALS: BP 178/68
[2024-03-26] MEDS ORDERED: Insulin Glargine-Yfgn 100 Unit/mL 3 ML SYR SC ONE ×2 (16:00→17:00)
--- NOTE | 2024-03-26 17:33 | NUR ---
SHIFT SUMMARY: PT AOX4 ANXIOUS, BUT PLEASANT AND CALM. MG AND P LOW ON LABS SO IV AND PO SUPPLEMENTS ORDERED. IV MEDS GIVEN BUT PT COULDN'T SWALLOW THE PO MEDICATIONS AND REFUSED THOSE. PT IN A LOT OF PAIN AND PAIN MEDICATION GIVEN PER REQUEST. BLOOD PRESSURE STAYING HIGH SYS AND PRN HYDRALOZINE GIVEN. ATE SMALL AMOUNT OF MEALS BUT CONTINUES TO INSIST ON SUGARY BEVERAGES PROVIDED BY FAMILY/ FRIENDS. BLOOD SUGAR CONTROLED WITHIN ACCEPTABLE RANGE WITH INSULIN. DENTAL HYGENIST ASSESSED DENTURES AND SOME TOOTH PAIN COMPLAINTS. PT ASSESSED PATIENT WELL AND TAUGHT SOME EXERCISES. PT RESTING CURRENTLY BED IN LOWEST POSITION, AND CALL LIGHT IN REACH. CONTINUING CARE.
--- NOTE | 2024-03-26 18:19 | NUR ---
THIS HOT METAL CRANE OPERATOR HAS REVIEWED AND AGREES WITH ALL NOTES AND ASSESSMENTS BY ANABEL LUCERO.
[2024-03-26 19:56] VITALS: BP 138/48
[2024-03-27 03:40] VITALS: BP 170/61
[2024-03-27 05:55] LABS: BASOPHILS ABSOLUTE AUTO 0.06 K/mm3 (0.00-0.23); BASOPHILS PERCENT AUTO 0 % (0-2); EOSINOPHILS ABSOLUTE AUTO 0.36 K/mm3 (0.00-0.68); EOSINOPHILS PERCENT AUTO 3 % (0-6); Hematocrit 38.4 % (33.0-51.0); Hemoglobin 12.9 g/dL (11.5-16.0); IMMATURE GRAN ABSOLUTE AUTO 0.32 K/mm3 (0.00-0.10); IMMATURE GRAN PERCENT AUTO 2 % (0-1); LYMPHOCYTES ABSOLUTE AUTO 1.36 K/mm3 (0.84-5.20); LYMPHOCYTES PERCENT AUTO 10 % (21-46); MONOCYTES ABSOLUTE AUTO 1.61 K/mm3 (0.16-1.47); MONOCYTES PERCENT AUTO 12 % (4-13); Mean Corpuscular HGB 32.4 pg (26.0-34.0); Mean Corpuscular HGB Conc 33.6 g/dL (31.5-36.5); Mean Corpuscular Volume 97 fL (80-100); NEUTROPHILS ABSOLUTE AUTO 10.13 K/mm3 (1.96-9.15); NEUTROPHILS PERCENT AUTO 73 % (41-73); RDW Coefficient Variation 15.3 % (11.7-14.2); RDW Standard Deviation 54.4 fL (35.1-46.3); Red Blood Cell Count 3.98 M/mm3 (3.80-5.20); White Blood Cell Count 13.84 K/mm3 (4.00-11.30)
[2024-03-27 06:14] LABS: Albumin, Blood 2.6 g/dL (3.4-5.0); Anion Gap 12 mmol/L (3-11); Blood Urea Nitrogen 12 mg/dL (8-24); Bun/Creatinine Ratio 15.8 (12.0-20.0); CO2, Blood 25 mmol/L (21-32); Calcium, Blood 8.2 mg/dL (8.5-10.1); Chloride, Blood 100 mmol/L (98-108); Creatinine, Blood 0.76 mg/dL (0.40-1.00); Glomerular Filtration Rate 88 (60-); Glucose, Blood 213 mg/dL (70-99); Magnesium, Blood 1.3 mg/dL (1.6-2.4); Phosphorus, Blood 2.8 mg/dL (2.5-4.9); Potassium, Blood 3.6 mmol/L (3.5-5.5); Sodium, Blood 133 mmol/L (136-145)
[2024-03-27 06:27] LABS: Mean Platelet Volume 11.5 fL (9.1-12.4); Platelet Count 253 K/mm3 (150-400)
[2024-03-27] MEDS ORDERED: Magnesium Sulf 2 GM/Water 50ML 50 ML IV ONE (06:50)
--- NOTE | 2024-03-27 07:14 | NUR ---
SHIFT SUMMARY: Pt is admitted for acute renal failure and is a DNR. is alert and able to make needs known. ADLs have been SBA. pain has been managed with PRN pain medication. Ruben reports sinus in the 60s with a 1 deg.
[2024-03-27 07:34] VITALS: BP 192/67
[2024-03-27] MEDS ORDERED: Magnesium Oxide 400 MG Tab PO SCH (09:00)
[2024-03-27] MEDS ORDERED: Insulin Glargine-Yfgn 100 Unit/mL 3 ML SYR SC SCH (09:00)
[2024-03-27] MEDS ORDERED: Famotidine 20 MG Tab PO SCH (09:00)
[2024-03-27 10:31] VITALS: BP 156/56
[2024-03-27] MEDS ORDERED: MAGNESIUM OXID500 MG PO (13:48)
[2024-03-27] MEDS ORDERED: NYSTATIN100000 U13 PO (13:55)
[2024-03-27] MEDS ORDERED: K-Phos Origina500 MG PO (13:59)
[2024-03-27 14:12] VITALS: BP 154/54
--- NOTE | 2024-03-27 17:09 | NUR ---
DISCHARGE SUMMARY: PT DISCHARGED AT 4:55. AOX4 AND UNDERSTOOD EDUCATION MATERIALS/ NEW MEDS. HAS AN APPOINTMENT WITH PCP AND SETTING UP ANOTHER FOLLOW UP WITH THE SPECIALIST. PT IN GOOD MOOD AND PLEASANT AFFECT. GOT DRESSED INDEPENDENTLY AND IND AMBULATE INTO WHEELCHAIR. NEIGHBOR CAME TO PICK HER UP TO TAKE HER HOME.
--- NOTE | 2024-03-27 17:51 | NUR ---
THIS BEAMER HAND HAS REVIEWED AND AGREES WITH ALL NOTES AND ASSESSMENTS BY ANABEL LUCERO.
== END 2024-03-27 16:59 | disposition home health service (06) | DRG 683 ==
LOC: ER 10:44 → MEDS 15:17
PROVIDERS: Internal Medicine; Internal Medicine Nephrology; Student in an Organized Health Care Education/Training Program; ADMIT Internal Medicine
DX: N17.9 Acute kidney failure, unspecified (principal); B37.0 Candidal stomatitis; I50.32 Chronic diastolic (congestive) heart failure; E87.0 Hyperosmolality and hypernatremia; Z66 Do not resuscitate; M62.82 Rhabdomyolysis; I13.0 Hypertensive heart and chronic kidney disease with heart failure and stage 1 through stage 4 chronic kidney disease, or unspecified chronic kidney disease; E87.1 Hypo-osmolality and hyponatremia; F11.20 Opioid dependence, uncomplicated; N39.0 Urinary tract infection, site not specified; E10.22 Type 1 diabetes mellitus with diabetic chronic kidney disease; E10.65 Type 1 diabetes mellitus with hyperglycemia; E10.69 Type 1 diabetes mellitus with other specified complication; G89.4 Chronic pain syndrome; D86.9 Sarcoidosis, unspecified; K21.9 Gastro-esophageal reflux disease without esophagitis; F32.A Depression, unspecified; E78.5 Hyperlipidemia, unspecified; G47.00 Insomnia, unspecified; E86.9 Volume depletion, unspecified; E88.89 Other specified metabolic disorders; E83.39 Other disorders of phosphorus metabolism; E83.42 Hypomagnesemia; R74.8 Abnormal levels of other serum enzymes; E66.9 Obesity, unspecified; R74.01 Elevation of levels of liver transaminase levels; E10.42 Type 1 diabetes mellitus with diabetic polyneuropathy; N18.30 Chronic kidney disease, stage 3 unspecified; I25.10 Atherosclerotic heart disease of native coronary artery without angina pectoris; E87.70 Fluid overload, unspecified; F43.12 Post-traumatic stress disorder, chronic; K74.60 Unspecified cirrhosis of liver; Z95.1 Presence of aortocoronary bypass graft; Z86.73 Personal history of transient ischemic attack (TIA), and cerebral infarction without residual deficits; Z88.8 Allergy status to other drugs, medicaments and biological substances; Z79.899 Other long term (current) drug therapy; Z79.4 Long term (current) use of insulin; Z98.890 Other specified postprocedural states; Z90.710 Acquired absence of both cervix and uterus; Z68.30 Body mass index [BMI] 30.0-30.9, adult
CPT/HCPCS: 36415; 70450; 71045; 76770; 80048; 80053; 80069; 81001; 82010; 82550; 82803; 82947; 83735; 84145; 85014; 85018; 85025; 87086; 93005; 93010; 94644; 94664; 96360; 96361; 97161; 97530; 99285-25; A9270; J0360; J0696; J1644; J1815; J2405; J3010; J3475; J7030; J7050; J7060

== ENCOUNTER 2024-05-31 20:39 | Inpatient (IN) | payer OTHER ==
[~2024-05-31] VITALS: Ht 154.9 cm; Wt 80.2 kg
[~2024-05-31 20:39] MED LIST changes: +BUPR150ER PO; +K-Phos Origina500 MG PO; +MAGNESIUM OXID500 MG PO; +NYSTATIN100000 U13 PO; +ROSUVASTATIN CA40 MG PO
[2024-05-31] MEDS ORDERED: NS 1,000 ML IV SCH (21:00)
[2024-05-31] MEDS ORDERED: OxyCODONE HCL 5 MG TAB PO ONE (21:05)
[2024-05-31 21:58] LABS: Hematocrit 39.3 % (33.0-51.0); Hemoglobin 13.2 g/dL (11.5-16.0); Mean Corpuscular HGB 31.1 pg (26.0-34.0); Mean Corpuscular HGB Conc 33.6 g/dL (31.5-36.5); Mean Corpuscular Volume 93 fL (80-100); NRBC ABSOLUTE 0.03 K/mm3 (0.00-0.02); NRBC Auto 0.2 /100 WBC (0.0-0.2); RDW Coefficient Variation 14.1 % (11.7-14.2); RDW Standard Deviation 47.5 fL (35.1-46.3); Red Blood Cell Count 4.24 M/mm3 (3.80-5.20); White Blood Cell Count 15.52 K/mm3 (4.00-11.30)
[2024-05-31 22:00] LABS: Mean Platelet Volume 11.5 fL (9.1-12.4); Platelet Count 386 K/mm3 (150-400)
[2024-05-31 22:09] LABS: Beta-hydroxybutyrate 14.8 mg/dL (0.2-2.8); Magnesium, Blood 1.8 mg/dL (1.6-2.4)
[2024-05-31 22:12] LABS: BAND PERCENT MAN 16 % (0-8); BASOPHILS PERCENT MAN 0 % (0-2); EOSINOPHILS PERCENT MAN 0 % (0-6); LYMPHOCYTES ABSOLUTE MAN 1.24 K/mm3 (0.84-5.20); LYMPHOCYTES PERCENT MAN 8 % (21-46); METAMYELOCYTE ABSOLUTE MAN 0.15 K/mm3 (0.00-0.00); METAMYELOCYTE PERCENT MAN 1 % (0-0); MONOCYTES ABSOLUTE MAN 1.24 K/mm3 (0.16-1.47); MONOCYTES PERCENT MAN 8 % (4-13); NEUTROPHILS ABSOLUTE MAN 12.88 K/mm3 (1.96-9.15); SEG NEUTROPHILS PERCENT MAN 67 % (41-73); TOTAL CELLS COUNTED 100
[2024-05-31 22:16] LABS: Albumin/Globulin Ratio 0.6 (0.8-1.8); Bilirubin, Total 0.5 mg/dL (0.1-1.0); Bun/Creatinine Ratio 19.5 (12.0-20.0); Calcium, Blood 8.1 mg/dL (8.5-10.1); Creatinine, Blood 8.53 mg/dL (0.40-1.00); Globulin, Blood 5.3 g/dL (2.2-4.0); Potassium, Blood 5.5 mmol/L (3.5-5.5); Total Protein, Blood 8.3 g/dL (6.4-8.2)
[2024-05-31 22:33] LABS: International Normalized Ratio 1.92; Prothrombin Time Results 19.6 Sec (9.7-11.5)
[2024-05-31 23:06] LABS: Bicarbonate Venous 13.8 mmol/L (24.0-30.0); PCO2 Venous 33.7 mmHg (38-42)
[2024-05-31] MEDS ORDERED: Sodium Bicarb 8.4% Inj 150 MEQ in Dextrose 5% 1,000 ML IV SCH (23:20)
[2024-05-31] MEDS ORDERED: Ondansetron HCl 2 MG / ML 2ML Vial IV PRN (23:30)
[2024-05-31] MEDS ORDERED: FLU VACC TS2024-25(6MOS UP)/PF 45 MCG/0.5 ML SYRINGE IM ONE (23:30)
[2024-05-31] MEDS ORDERED: Sodium Bicarb 8.4% Inj 100 MEQ in Sodium Chloride 0.45% 1,000 ML IV ONE (23:50)
[2024-05-31] MEDS ORDERED: CALCIUM GLUC IN NACL, ISO-OSM 50 ML IV ONE (23:50)
[2024-05-31] MEDS ORDERED: Sodium Bicarb 8.4% 1 MEQ/ML 50 ML Vial IV ONE (23:55)
[2024-06-01] VITALS (32 sets, daily range): BP systolic 99–168; BP diastolic 21–115
[2024-06-01 01:00] LABS: Source, Urine Foley catheter
[2024-06-01 01:03] LABS: Blood, Urine 1+ (Neg); Glucose Qualitative, Urine 1+ (Neg); Ketones, Urine Neg (Neg); Leukocyte Esterase, Urine 1+ (Neg); Nitrite, Urine Neg (Neg); Protein, Urine 1+ (Neg); Specific Gravity, Urine 1.025 (1.003-1.022); Urobilinogen, Urine NORM (Normal)
[2024-06-01 01:33] LABS: Appearance, Urine Hazy (Clear); Bilirubin, Urine 1+ (Neg); Color, Urine Yellow (P-Yellow)
[2024-06-01 01:34] LABS: Amorphous Light (0-Heavy); Bacteria Mod /hpf; Squamous Epithelial Cells Mod /hpf (Few); Yeast/Fungi Urine Few /hpf
[2024-06-01 05:29] LABS: Hematocrit 31.2 % (33.0-51.0); Hemoglobin 11.1 g/dL (11.5-16.0); Mean Corpuscular HGB 31.9 pg (26.0-34.0); Mean Corpuscular HGB Conc 35.6 g/dL (31.5-36.5); Mean Corpuscular Volume 90 fL (80-100); Mean Platelet Volume 11.8 fL (9.1-12.4); NRBC ABSOLUTE 0.02 K/mm3 (0.00-0.02); NRBC Auto 0.1 /100 WBC (0.0-0.2); Platelet Count 365 K/mm3 (150-400); RDW Coefficient Variation 13.9 % (11.7-14.2); RDW Standard Deviation 45.5 fL (35.1-46.3); Red Blood Cell Count 3.48 M/mm3 (3.80-5.20); White Blood Cell Count 15.17 K/mm3 (4.00-11.30)
[2024-06-01 05:55] LABS: BAND PERCENT MAN 19 % (0-8); BASOPHILS PERCENT MAN 0 % (0-2); EOSINOPHILS PERCENT MAN 0 % (0-6); LYMPHOCYTES ABSOLUTE MAN 1.51 K/mm3 (0.84-5.20); LYMPHOCYTES PERCENT MAN 10 % (21-46); METAMYELOCYTE ABSOLUTE MAN 0.15 K/mm3 (0.00-0.00); METAMYELOCYTE PERCENT MAN 1 % (0-0); MONOCYTES ABSOLUTE MAN 0.91 K/mm3 (0.16-1.47); MONOCYTES PERCENT MAN 6 % (4-13); NEUTROPHILS ABSOLUTE MAN 12.59 K/mm3 (1.96-9.15); SEG NEUTROPHILS PERCENT MAN 64 % (41-73); TOTAL CELLS COUNTED 100
[2024-06-01 06:00] LABS: Albumin, Blood 2.3 g/dL (3.4-5.0); Albumin/Globulin Ratio 0.5 (0.8-1.8); Bilirubin, Total 0.4 mg/dL (0.1-1.0); Bun/Creatinine Ratio 21.5 (12.0-20.0); Calcium, Blood 7.6 mg/dL (8.5-10.1); Creatinine, Blood 7.38 mg/dL (0.40-1.00); Globulin, Blood 4.3 g/dL (2.2-4.0); Potassium, Blood 4.2 mmol/L (3.5-5.5); Total Protein, Blood 6.6 g/dL (6.4-8.2)
[2024-06-01 07:25] LABS: Influenza A, PCR NEGATIVE (NEGATIVE); Influenza B, PCR NEGATIVE (NEGATIVE); Resp Syncytial Virus, PCR NEGATIVE (NEGATIVE); SARS-Cov-2 (COVID-19) PCR, MMC NEGATIVE (NEGATIVE)
[2024-06-01] MEDS ORDERED: Insulin Human Lispro 100 Units/ML 3ML Syringe SC SCH (07:30)
[2024-06-01] MEDS ORDERED: Insulin Regular 100 Unit/ML 1ML Dose IV ONE (09:00)
--- NOTE | 2024-06-01 09:36 | NUR ---
PT ARRIVED TO [facility] 16 ABOUT 1914. THE PT WAS IN AFIB RVR. THIS WAS DISCUSSED WITH MEDArchon DEANDRA, AND HE STATED THE PT CONVERTED FROM SR TO AFIB RVR AT 0815, AND THEY HAD A SHORT RUN OF AFIB RVR THAT LAST THIRTY MINUTES DURING HEALTHCARE SOCIAL WORKER. DR. ALMARAZ CALLED AND ORDERED 5MG LOPRESSOR PUSH NOW AN DHE WILL BE BY TO SEE THE PT. DR. YA AT BEDSIDE TO SEE THE PT. DR. TYLER AT BEDSIDE TO SEE THE PT.
[2024-06-01] MEDS ORDERED: Metoprolol Tartrate 1 MG/ML 5 ML VIAL IV ONE (09:45)
[2024-06-01] MEDS ORDERED: Sodium Bicarb 8.4% Inj 150 MEQ in Dextrose 5% 1,000 ML IV SCH (10:00)
[2024-06-01] MEDS ORDERED: CefTRIAXone Sodium 1,000 MG in NS 100 ML IV SCH (11:00)
[2024-06-01] MEDS ORDERED: DEXTROMETHORPHAN/BENZOCAINE 1 EACH LOZENGE MT PRN (11:30)
[2024-06-01] MEDS ORDERED: NS 1,000 ML IV SCH ×2 (11:30→12:45)
[2024-06-01] MEDS ORDERED: Dextrose 50% 50 ML Syringe IV PRN (11:30)
[2024-06-01 11:50] LABS: PCO2 Arterial 40.5 mmHg (35-45); PO2 Arterial 84.1 mmHg (80-100); pH Blood Arterial 7.33 (7.35-7.45)
[2024-06-01] MEDS ORDERED: Pantoprazole Sodium 40 MG Injection IV SCH (12:00)
[2024-06-01 12:28] LABS: Bun/Creatinine Ratio 24.8 (12.0-20.0); Calcium, Blood 7.8 mg/dL (8.5-10.1); Creatinine, Blood 6.6 mg/dL (0.40-1.00)
[2024-06-01] MEDS ORDERED: Insulin Human Regular 100 UNIT in NS 100 ML IV SCH (12:55)
[2024-06-01] MEDS ORDERED: NS 250 ML IV PRN (13:30)
[2024-06-01] MEDS ORDERED: Sodium Bicarb 8.4% Inj 50 MEQ in NS 1,000 ML IV SCH (13:30)
[2024-06-01] MEDS ORDERED: NS 1,000 ML IV ONE (13:45)
[2024-06-01] MEDS ORDERED: HYDROmorphone HCl/Pf 1MG SYR IV PRN (13:50)
[2024-06-01] MEDS ORDERED: D5W-1/2NS 1,000 ML IV SCH (13:50)
[2024-06-01 15:07] LABS: Calcium, Blood 7.1 mg/dL (8.5-10.1); Potassium, Blood 3.8 mmol/L (3.5-5.5)
[2024-06-01 16:57] LABS: Albumin, Blood 1.9 g/dL (3.4-5.0); Anion Gap 24 mmol/L (3-11); Blood Urea Nitrogen 149 mg/dL (8-24); Bun/Creatinine Ratio 25.7 (12.0-20.0); CO2, Blood 21 mmol/L (21-32); Calcium, Blood 7.1 mg/dL (8.5-10.1); Chloride, Blood 95 mmol/L (98-108); Glomerular Filtration Rate 8 (60-); Glucose, Blood 301 mg/dL (70-99); Potassium, Blood 3.8 mmol/L (3.5-5.5); Sodium, Blood 136 mmol/L (136-145)
[2024-06-01 16:59] LABS: Phosphorus, Blood 8.2 mg/dL (2.5-4.9)
[2024-06-01] MEDS ORDERED: D5W-NS 1,000 ML IV SCH (17:05)
--- NOTE | 2024-06-01 18:01 | NUR ---
SHIFT SUMMARY PT TRANSFERRED TO ICU AT 1235 FOR INSULIN GTT. PT REPORTS GENERALIZED WEAKNESS X 2 DAYS. REPORTS CHRONIC PAIN, ALSO REPORTS ABD PAIN BUT STATES CHRONIC PAIN WORSE. PT A&OX 3 BUT OCCASIONALLY MAKES CONFUSED STATEMENTS, REORIENTS EASILY. FOLLOWS COMMANDS. SR, RATE 80-90'S. BP STABLE. PT PALE, CAP REFILL <3 SEC, WARM. ABD FIRM, DISTENDED, HYPOACTIVE BT. PT INCONTINENT OF BOWEL ON ARRIVAL. NGT TO R NARE, LIS, 250 ML GREEN BILE OUT SINCE ARRIVAL. PT REPORTS ABD PAIN AND NAUSEA IMPROVED, OK FOR ICE CHIPS PER DR TELLES. RODRIGUEZ PATENT, DRAINED 800 ML CLEAR YELLOW URINE OUT TO GRAVITY. INSULIN GTT, D5 NS AND BICARB GTT PER DR YA. POWERGLIDE X 2 PLACED THIS SHIFT. WILL CONTINUE PLAN OF CARE UNTIL REPORT TO ONCOMING NURSE.
--- NOTE | 2024-06-01 20:00 | NUR ---
ASSUMED CARE OF PT AT 1900. REPORT RECEIVED AT BEDSIDE. PT PRESENTS IN BED. ALERT AND ORIENTED. DOES DEMONSTRATE AN EASY STARTLE REFLEX. PT ABLE TO MAKE HER NEEDS KNOWN. PARTICIPATES SOME WITH BEDSIDE REPORT. INSULIN DRIP VERIFIED WITH OFFGOING RN. WILL REVIEW CHART AND PLAN OF CARE FOR THIS PT.
[2024-06-01 21:25] LABS: Bun/Creatinine Ratio 29.6 (12.0-20.0); Calcium, Blood 7.5 mg/dL (8.5-10.1); Creatinine, Blood 5.14 mg/dL (0.40-1.00); Potassium, Blood 3.7 mmol/L (3.5-5.5)
[2024-06-02] VITALS (37 sets, daily range): BP systolic 103–187; BP diastolic 44–90
[2024-06-02 00:31] LABS: Bun/Creatinine Ratio 31.9 (12.0-20.0); Calcium, Blood 7.8 mg/dL (8.5-10.1); Creatinine, Blood 4.57 mg/dL (0.40-1.00); Potassium, Blood 3.7 mmol/L (3.5-5.5)
[2024-06-02 03:18] LABS: Hematocrit 28.3 % (33.0-51.0); Hemoglobin 9.9 g/dL (11.5-16.0)
[2024-06-02 03:35] LABS: Anion Gap 17 mmol/L (3-11); Blood Urea Nitrogen 137 mg/dL (8-24); Bun/Creatinine Ratio 33.9 (12.0-20.0); CO2, Blood 23 mmol/L (21-32); Chloride, Blood 107 mmol/L (98-108); Creatinine, Blood 4.04 mg/dL (0.40-1.00); Glomerular Filtration Rate 12 (60-); Glucose, Blood 140 mg/dL (70-99); Magnesium, Blood 1.5 mg/dL (1.6-2.4); Phosphorus, Blood 6.2 mg/dL (2.5-4.9); Potassium, Blood 3.4 mmol/L (3.5-5.5); Sodium, Blood 144 mmol/L (136-145)
--- NOTE | 2024-06-02 03:58 | NUR ---
CALL MADE TO DR YA WITH LABS. ORDERS RECEIVED.
[2024-06-02] MEDS ORDERED: Mag Sulfate 1 GM/D5% 100ML 100 ML IV ONE (04:00)
[2024-06-02] MEDS ORDERED: Potassium Chl 20MEQ/Water100ML 100 ML IV ONE (04:30)
[2024-06-02] MEDS ORDERED: HydrALAZINE HCl 20 MG / ML 1ML Vial IV PRN (04:45)
--- NOTE | 2024-06-02 06:16 | NUR ---
DR YA COMES IN TO SEE PT THIS MORNING. HAVE CALLED EARLIER THIS AM WITH LABS. ORDERS RECEIVED. PT CONTINUES ON INSULIN DRIP AT 1.5 UNITS PER HOUR. HOURLY GLUCOSE CHECKS CONTINUE. PT HAS HAD ADEQUATE URINE OUTPUT. 300 ML THICK BROWN/GREEN COLORED RETURN. PT HAS HAD OCCASSIONAL ICE CHIPS. HAVE EDUCATED PT THAT WHILE ON AN INSULIN DRIP THE POTASSIUM LEVELS CAN LOWER AND THAT HAVING FLUIDS INTO STOMACHE WITH SUCTION, CAN LOWER POTASSIUM DECREASE. PT VOICES UNDERSTANDING. HAS BEEN SOMEWHAT CONSERVATIVE WITH ICE. WILL CONTINUE TO MONITOR PT, AND WILL REPORT OFF TO ONCOMING RN.
--- NOTE | 2024-06-02 08:15 | NUR ---
ASSUMED CARE BEDSIDE REPORT FROM LAURITA LITTLE AT 0700. PT RESTING IN BED. A&O X 3. FOLLOWS COMMANDS. ABLE TO MAKE NEEDS KNOWN. OCCASIONALLY MAKES CONFUSED STATEMENTS WHEN SHE WAKES FROM SLEEP. REORIENTS EASILY. LUNGS DIM IN BASES, 1L VIA NC, O2 SAT >95%. OCCASIONAL MOIST NON PRODUCTIVE COUGH. SR, RATE 90'S. BP STABLE. PT PALE, CAP REFILL <3 SEC. ABD DISTENDED, FIRM, HYPOACTIVE BT. NGT TO R NARE, LIS, GREEN BILE OUT. DR TELLES ROUNDED, REPEAT XRAY ORDERED AND COMPLETED. PT STATES CHRONIC PAIN MANAGEABLE AT THIS TIME. C/O DRY MOUTH, ORAL CARE, ICE CHIPS AND HARD CANDY PROVIDED. INSULIN GTT, BICARB, D5 NS INFUSING. POWERGLIDE X 2, DRESSINGS C/D/I. RODRIGUEZ PATENT, DRAINING CLEAR YELLOW URINE TO GRAVITY. WILL CONTINUE PLAN OF CARE.
[2024-06-02 09:31] LABS: Beta-hydroxybutyrate 2.6 mg/dL (0.2-2.8); Bun/Creatinine Ratio 41.5 (12.0-20.0); Calcium, Blood 8.1 mg/dL (8.5-10.1); Creatinine, Blood 3.06 mg/dL (0.40-1.00); Potassium, Blood 3.7 mmol/L (3.5-5.5)
[2024-06-02] MEDS ORDERED: D5W-1/2NS 1,000 ML IV SCH (09:40)
--- NOTE | 2024-06-02 11:17 | NUR ---
Pt. is resting but respnds when I enter the room. Pt. is pleasant. Facilitated a life review. Listen with empathy and a calming presence as the Pt. verbalized that she didn't have any family in the area. Pt. displayed evidence of openness and trust. Pt. welcomed prayer. Prayed with Pt. Pt. verbalized gratitude for the spiritual care visit. Will remain available to the Pt.
[2024-06-02 12:50] LABS: Ketones, Urine Neg (Neg)
[2024-06-02] MEDS ORDERED: Insulin Glargine-Yfgn 100 Unit/mL 3 ML SYR SC ONE (13:00)
[2024-06-02] MEDS ORDERED: Nystatin 100,000 Unit/ML Susp 5 ML UDC SS SCH (17:00)
--- NOTE | 2024-06-02 17:51 | NUR ---
SHIFT SUMMARY PT STATUS CHANGED TO PCU. TRANSITIONED OFF INSULIN GTT. D5 1/2 NS GTT CONTINUES, VERIFIED c DR ALMARAZ. CHG q6 c SS COVERAGE. PT REMAINS NPO OTHER THAN ICE CHIPS. NGT TO LIS, 300 ML GREEN BILE OUT THIS SHIFT. ABD CONTINUES TO BE FIRM, DISTENDED, HYPOACTIVE BT. NO BM, PT C/O NAUSEA ONCE. REPORTS CHRONIC, GENERALIZED PAIN, STATES PAIN NO WORSE IN ABD THAN ALL OVER. NEURO UNCHANGED. LUNGS DIM. ON RA. SR/ST, RATE 90-100'S. BP STABLE. MEDICATED FOR HTN PRN. RODRIGUEZ PATENT, DRAINED 1750 ML CLEAR YELLOW URINE TO GRAVITY. PT REFUSING SCDS D/T NEUROPATHY PAIN, ENCOURAGED ANKLE PUMPS. WILL CONTINUE PLAN OF CARE UNTIL REPORT TO ONCOMING NURSE.
[2024-06-02] MEDS ORDERED: Insulin Regular 100 UNIT/ML 10ML Vial SC SCH (18:00)
--- NOTE | 2024-06-02 21:03 | NUR ---
ASSUMED CARE AT 1900 PT LAYING IN BED SLEEPING AT SHIFT CHANGE BUT EASILY AWAKES TO VERBAL STIMULI. SHE IS A/O X4 BUT APPEARS OVERWHELMED WHEN DISCUSSING THIS HOSPITALIZATION AND EASILY STARTS CRYING, SHE IS CONSOLABLE. STIFF EXTREMITIES NOTED WHILE REPOSITIONING. PT REPORTED PAIN, 7/10, PRN DILAUDID GIVEN AND MODERATLY HELPFUL. SPO2 >92% ON RA WHILE AWAKE. AFEBRILE. HR 80-90'S. BP STABLE WITH SBP 130-140'S. NG TO LIS WITH GREEN BILE LIKE CONTENT SUCTIONED OUT; TOLERATING ICE CHIPS WELL; NO C/O NAUSEA. RODRIGUEZ IN PLACE AND DRAINING TO GRAVITY. BILATERAL POWERGLIDES IN PLACE AND PATENT. D5 1/2NS INFUSING AT 75ML/HR. SEE SHIFT ASSESSMENT FOR FULL ASSESSMENT.
[2024-06-03] VITALS (18 sets, daily range): BP systolic 144–174; BP diastolic 48–124
[2024-06-03 04:26] LABS: Hematocrit 28.5 % (33.0-51.0); Hemoglobin 9.9 g/dL (11.5-16.0); Mean Corpuscular HGB 31.9 pg (26.0-34.0); Mean Corpuscular HGB Conc 34.7 g/dL (31.5-36.5); Mean Corpuscular Volume 92 fL (80-100); Mean Platelet Volume 10.8 fL (9.1-12.4); NRBC ABSOLUTE 0.02 K/mm3 (0.00-0.02); NRBC Auto 0.2 /100 WBC (0.0-0.2); Platelet Count 287 K/mm3 (150-400); White Blood Cell Count 11.47 K/mm3 (4.00-11.30)
[2024-06-03 04:50] LABS: BAND PERCENT MAN 6 % (0-8); BASOPHILS PERCENT MAN 0 % (0-2); EOSINOPHILS PERCENT MAN 0 % (0-6); LYMPHOCYTES ABSOLUTE MAN 1.03 K/mm3 (0.84-5.20); LYMPHOCYTES PERCENT MAN 9 % (21-46); METAMYELOCYTE ABSOLUTE MAN 0.22 K/mm3 (0.00-0.00); METAMYELOCYTE PERCENT MAN 2 % (0-0); MONOCYTES ABSOLUTE MAN 1.37 K/mm3 (0.16-1.47); MONOCYTES PERCENT MAN 12 % (4-13); MYELOCYTE ABSOLUTE MAN 0.22 K/mm3 (0.00-0.00); MYELOCYTE PERCENT MAN 2 % (0-0); SEG NEUTROPHILS PERCENT MAN 69 % (41-73); TOTAL CELLS COUNTED 100
[2024-06-03 05:09] LABS: Anion Gap 12 mmol/L (3-11); Blood Urea Nitrogen 90 mg/dL (8-24); Bun/Creatinine Ratio 62.1 (12.0-20.0); CO2, Blood 26 mmol/L (21-32); Calcium, Blood 8.7 mg/dL (8.5-10.1); Chloride, Blood 113 mmol/L (98-108); Creatinine, Blood 1.45 mg/dL (0.40-1.00); Glomerular Filtration Rate 41 (60-); Glucose, Blood 310 mg/dL (70-99); Magnesium, Blood 1.3 mg/dL (1.6-2.4); Phosphorus, Blood 3.9 mg/dL (2.5-4.9); Potassium, Blood 3.7 mmol/L (3.5-5.5); Sodium, Blood 147 mmol/L (136-145)
[2024-06-03] MEDS ORDERED: Dextrose 5% 1,000 ML IV SCH ×4 (05:35→20:30)
[2024-06-03] MEDS ORDERED: Magnesium Sulf 2 GM/Water 50ML 50 ML IV ONE (06:00)
--- NOTE | 2024-06-03 06:34 | NUR ---
END OF SHIFT SUMMARY NO ACUTE EVENTS OVERNIGHT. SHE WAS ABLE TO SLEEP FOR MOST OF THE NIGHT BUT CONT TO WAKE TO VERBAL STIMULI; SHE IS A/O X4. ONE DOSE OF DILAUDID GIVEN AND HELPFUL. PLACED ON 1L NC WHILE SLEEPING TO MAINTAIN SPO2 >90%. AFEBRILE. HR 90-120'S. SBP 140-160'S; ONE DOSE OF HYDRALAZINE GIVEN FOR SBP >160 AND HELPFUL. NG CONT TO BE IN PLACE WITH GREEN BILE OUTPUT; ABD LESS FIRM THAN PREVIOUSLY IN SHIFT; TOLERATING ICE CHIPS WELL; NO NAUSEA; NO BM. RODRIGUEZ IN PLACE WITH ADAQUATE OUTPUT. FLUIDS CHANGED TO D5W INFUSING AT 75ML/HR. REPLACEMENT MAG INFUSING NOW. WILL REPORT TO AM RN WHEN AVAILABLE.
[2024-06-03] MEDS ORDERED: Labetalol HCL 5 MG/ML 4ML Injection (Single Dose) IV PRN (09:25)
[2024-06-03] MEDS ORDERED: Insulin Regular 100 UNIT/ML 10ML Vial SC SCH (12:00)
[2024-06-03] MEDS ORDERED: TPN Consult Notification XX ONE (13:40)
[2024-06-03] MEDS ORDERED: Insulin Glargine-Yfgn 100 Unit/mL 3 ML SYR SC SCH ×2 (14:00→21:00)
--- NOTE | 2024-06-03 15:04 | NUR ---
Pt. is somnolent but is responsive to this taker out when I come to bedside. Pt. welcomes my visit. Due to the nature of her somnolence this taker out kept the visit short. Pt. verbalized that she is still experiencing pain. Pt. welcomed prayer. Prayed with Pt. Will remain available to the Pt.
[2024-06-03] MEDS ORDERED: Darbepoetin Alfa In Albumn Sol 40 MCG/0.4 ML SC SCH (16:00)
[2024-06-03] MEDS ORDERED: Nitroglycerin 1 INCH/GM PKT TOP ONE (16:40)
[2024-06-03] MEDS ORDERED: Parenteral Electolytes 40 ML,Multivitamins 10 ML,ZINC SULF/CUSO4 P-HYD/MN/CR/SE 1 ML,Th... IV SCH (17:00)
--- NOTE | 2024-06-03 17:39 | NUR ---
SHIFT SUMMARY: ASSUME CARE FROM JER LITTLE AT 1000. PT ALERT TO VERAL STIMULI, LETHARGIC AND TIRED. UNABLE TO ANSWER QUESTIONS WITHOUT FALLING ASLEEP. PT HAD A SMALL BOWEL FOLLOW THROUGH PROCEDURE, WITH GOOD RESULTS, PT ABLE TO HAVE TWO LARGE BOWEL MOVEMENTS. DR. TELLES CALLED REGARDING THESE RESULTS, ORDERS FOR NG TUBE REMOVAL AND CLEAR LIQUID DIET GIVEN. PT SBP HAS BEEN ELEVATED 160s-170s, MEDICATED PER EMAR. DR. ALMARAZ CALLED REGARDING HER ELEVATED BPs, AND WHETHER WE SHOULD RESTART HER HOME BP MEDS BUT DECLINED DUE TO RENAL FUNCTION. DR. ALMARAZ ORDERED NITRO PASTED X1. PT SPO2>94% ON 2 L NC. CBGs CONTINUE TO BE ELEVATED, DR. ALMARAZ ORDERED LONG ACTING INSULIN AND DC's D5 GTT. DR YA FOLLOWING PT HIGH SODIUM LEVELS, CALLED REGARDING MOST RECENT RESULTS, WAITING FOR CALL BACK. MONITOR SHOWS SINUS TACH, RATE 110s-120s, ELEVATED TO SHORT RUNS IN THE 150s. PT MEDICATED FOR PAIN. CALL LIGHT IN REACH. WILL REPORT TO ONCOMING RN.
--- NOTE | 2024-06-03 18:45 | NUR ---
UPDATE: DR. YA CALLED BACK REGARDING SODIUM LEVEL. ORDERS GIVEN TO RESTART D5 GTT AT 150 ML/HR FOR 2 HOURS, THEN START IT AT 100 ML/HR. REDRAW SODIUM AT 2200, AND CALL FELTON WITH RESULTS BY 2300.
--- NOTE | 2024-06-03 20:00 | NUR ---
ASSUMED CARE OF PT AT 1900. REPORT RECEIVED AT BEDSIDE. PT PRESENTS IN BED. DROWSY. AWAKENS WITH ASSESSMENT AND CARE. NOTED TO HAVE FLAT AFFECT. NO APPARENT DISTRESS. FLEXISEAL IN PLACE AT THIS TIME. WILL REVIEW CHART AND PLAN OF CARE FOR THIS PT.
--- NOTE | 2024-06-03 22:38 | NUR ---
CALL TO DR YA WITH SODIUM LEVEL. ORDERS RECEIVED. DR ALMARAZ CALLS CONCERNING BLOOD GLUCOSE LEVELS INCREASING. HAS INCREASED CBG TO Q 2 HOUR. WITH HIGH SLIDING SCALE INSULIN COVERAGE.
[2024-06-04] VITALS (39 sets, daily range): BP systolic 86–168; BP diastolic 25–104
[2024-06-04] MEDS ORDERED: Insulin Regular 100 UNIT/ML 10ML Vial SC SCH
[2024-06-04 04:14] LABS: Hematocrit 33.4 % (33.0-51.0); Hemoglobin 10.9 g/dL (11.5-16.0)
[2024-06-04 04:39] LABS: Albumin, Blood 2.2 g/dL (3.4-5.0); Anion Gap 11 mmol/L (3-11); Blood Urea Nitrogen 68 mg/dL (8-24); Bun/Creatinine Ratio 55.3 (12.0-20.0); CO2, Blood 29 mmol/L (21-32); Calcium, Blood 9.5 mg/dL (8.5-10.1); Chloride, Blood 117 mmol/L (98-108); Creatinine, Blood 1.23 mg/dL (0.40-1.00); Glomerular Filtration Rate 49 (60-); Glucose, Blood 363 mg/dL (70-99); Magnesium, Blood 1.8 mg/dL (1.6-2.4); Phosphorus, Blood 2.1 mg/dL (2.5-4.9); Potassium, Blood 2.9 mmol/L (3.5-5.5); Sodium, Blood 154 mmol/L (136-145)
--- NOTE | 2024-06-04 04:44 | NUR ---
FLEXISEAL LEAKED AGAIN. LARGE AMOUNT OF LIQUID STOOL EXPELLED. REMOVED FLEXISEAL AND REINSERTED WITH RETURN DRAINAGE. WILL MONITOR. 45 ML WATER INSTILLED IN CUFF. PT TOLERATES THIS FAIR. CONTINUING WITH Q 2 HOUR BLOOD GLUCOSE CHECKS WITH HIGH SLIDING SCALE INSULIN. WILL CONTINUE TO MONITOR.
[2024-06-04] MEDS ORDERED: Potassium Chloride 30 MEQ IV SCH (05:15)
[2024-06-04] MEDS ORDERED: Insulin Human Regular 100 UNIT in NS 100 ML IV SCH (05:15)
[2024-06-04] MEDS ORDERED: Dextrose 5% 1,000 ML IV SCH ×2 (05:20→21:25)
[2024-06-04] MEDS ORDERED: Potassium Chl 10MEQ/Water100ML 100 ML IV SCH ×2 (05:40→16:05)
[2024-06-04] MEDS ORDERED: Potassium Phosphate Dibasic 20 MM in Dextrose 5% 500 ML IV ONE (06:00)
--- NOTE | 2024-06-04 08:00 | NUR ---
Geary of care: Patient is very somnolent. Will arouse to gentle sternal rub. Will weakly follow commands with repeated stimulation. Will nod yes/no to questions but does not verbalize answers. Pupils 4 & briskly reactive. In NSR with SBP 150-160. Skin very cool, especially in fingers/hands but brisk cap refill. Respirations even/unlabored on 1L NC with clear breath sounds. Charles draining clear, yellow urine. Flexiseal in place due to liquid stools. Insulin gtt infusing with titrations per protocol - currently infusing at 7u/hr. Potassium & phos being replaced. Will re-check renal panel & Mag at 1400 per nephro. D5 gtt infusing at 200 cc/hr.
[2024-06-04] MEDS ORDERED: Albuterol 2.5 MG/3 ML VIAL INH PRN (08:05)
[2024-06-04 15:40] LABS: Albumin, Blood 1.9 g/dL (3.4-5.0); Anion Gap 11 mmol/L (3-11); Blood Urea Nitrogen 53 mg/dL (8-24); Bun/Creatinine Ratio 49.1 (12.0-20.0); CO2, Blood 29 mmol/L (21-32); Calcium, Blood 8.1 mg/dL (8.5-10.1); Chloride, Blood 107 mmol/L (98-108); Creatinine, Blood 1.08 mg/dL (0.40-1.00); Glomerular Filtration Rate 58 (60-); Glucose, Blood 245 mg/dL (70-99); Magnesium, Blood 1.2 mg/dL (1.6-2.4); Phosphorus, Blood 3.2 mg/dL (2.5-4.9); Potassium, Blood 2.9 mmol/L (3.5-5.5)
[2024-06-04 15:43] LABS: Sodium, Blood 144 mmol/L (136-145)
[2024-06-04] MEDS ORDERED: Magnesium Sulf 2 GM/Water 50ML 50 ML IV ONE (15:50)
[2024-06-04] MEDS ORDERED: Insulin Glargine-Yfgn 100 Unit/mL 3 ML SYR SC SCH (16:25)
--- NOTE | 2024-06-04 18:15 | NUR ---
Shift summary: Patient remains somnolent throughout the shift. Will arouse to repeated stimuli but does not converse except for yes/no. Does weakly follow commands x4 extremities. NSR to ST in 110 range but did have frequent PACs this afternoon. Blood pressure stable with no need for prn anti-hypertensives. Extremities remain cool to the touch & pale. Weaned to room air earlier & she is tolerating that well with O2 sat of 100%. Flexiseal remains in place as does Charles catheter, draining ~100cc q2h. 700cc out of rectal tube for the day. Did not take anything PO today as she was too sleepy. Multiple electrolyte replacements. Insulin gtt discontinued @ 1800 d/t continually low serum potassium levels despite replenishments. Will re-check labs at 1800 & 2100 per nephro. D5 gtt decreased to 100cc/hr after most recent Na of 144. Most recent blood glucose 186.
--- NOTE | 2024-06-04 18:58 | NUR ---
MD update: Left a voicemail for Dr. Villarreal notifying of most recent sodium results (142). Will re-check renal panel & mag at 2100.
[2024-06-04] MEDS ORDERED: Insulin Human Lispro 100 Units/ML 3ML Syringe SC SCH (20:00)
[2024-06-04 21:14] LABS: Anion Gap 12 mmol/L (3-11); Blood Urea Nitrogen 46 mg/dL (8-24); Bun/Creatinine Ratio 49.9 (12.0-20.0); CO2, Blood 27 mmol/L (21-32); Calcium, Blood 8.2 mg/dL (8.5-10.1); Chloride, Blood 105 mmol/L (98-108); Creatinine, Blood 0.92 mg/dL (0.40-1.00); Glomerular Filtration Rate 70 (60-); Glucose, Blood 157 mg/dL (70-99); Magnesium, Blood 1.7 mg/dL (1.6-2.4); Phosphorus, Blood 2.7 mg/dL (2.5-4.9); Potassium, Blood 3.6 mmol/L (3.5-5.5); Sodium, Blood 140 mmol/L (136-145)
--- NOTE | 2024-06-04 21:22 | NUR ---
LAB RESULTS CALLED TO DR YA. SEE ORDERS
[2024-06-05] VITALS (21 sets, daily range): BP systolic 118–169; BP diastolic 56–100
[2024-06-05] MEDS ORDERED: OxyCODONE HCL 5 MG TAB PO PRN (05:15)
[2024-06-05 05:30] LABS: Hematocrit 33.5 % (33.0-51.0)
[2024-06-05 05:49] LABS: Anion Gap 12 mmol/L (3-11); Blood Urea Nitrogen 40 mg/dL (8-24); Bun/Creatinine Ratio 46.8 (12.0-20.0); CO2, Blood 25 mmol/L (21-32); Calcium, Blood 8.5 mg/dL (8.5-10.1); Chloride, Blood 107 mmol/L (98-108); Creatinine, Blood 0.85 mg/dL (0.40-1.00); Glomerular Filtration Rate 77 (60-); Glucose, Blood 176 mg/dL (70-99); Magnesium, Blood 1.5 mg/dL (1.6-2.4); Phosphorus, Blood 2.5 mg/dL (2.5-4.9); Potassium, Blood 3.5 mmol/L (3.5-5.5); Sodium, Blood 140 mmol/L (136-145)
[2024-06-05] MEDS ORDERED: Mag Sulfate 1 GM/D5% 100ML 100 ML IV STA (06:22)
--- NOTE | 2024-06-05 06:40 | NUR ---
SHIFT SUMMERY PT HAS BEEN ALERT AND ORIENTED TO SELF AND PLACE. SHE IS SLOW TO EXPRESS THOUGHTS AT TIMES. SHE IS ABLE TO MAKE NEEDS KNOWN AND FOLLOW COMMANDS. SHE IS ON ROOM AIR W/OXYGEN SAT >92%. LABS HAVE BEEN STABLE. DR YA WAS NOTIFIED OF MORNING LABS RESULTS. SHE HAS BEEN ST ON THE DIE TRY OUT WORKER STAMPING. BP WNL. RODRIGUEZ CATH AND RECTAL TUBE INTACT PATENT AND DRAINING TO GRAVITY. AFEBRILE. LABS DUE TO BE DRAWN AT 1100 TODAY AND RESULTS TO BE CALLED TO DR YA BY NOON.
[2024-06-05 11:33] LABS: Magnesium, Blood 1.9 mg/dL (1.6-2.4)
[2024-06-05] MEDS ORDERED: Insulin Regular 100 UNIT/ML 10ML Vial SC SCH (16:30)
--- NOTE | 2024-06-05 16:49 | NUR ---
SUMMARY PT A/O X4 TODAY. FOLLOWS COMMANDS AND USING THE CALL LIGHT APPROPRIATELY. GOT TO SIDE OF BED WITH OT AND STOOD A FEW TIMES TODAY. BLOOD SUGARS IMPROVING AND SODIUM IMPROVING. STILL ON D5W GTT. REPEAT LABS AT 1700. STILL HAVING DIARRHEA, SPOKE WITH DR. ALARCON ABOUT THIS, BANANA FLAKES ORDERED. TOLERATING CLEAR LIQUID DIET. TRANSFERED TO PCU 11, REPORT GIVEN TO SOPHIA. PT HAS CELL PHONE AND PHYSICIAN OFFICE REP AND BELONGINGS BAG WITH CLOTHES IN IT.
--- NOTE | 2024-06-05 17:00 | NUR ---
TRANSFER UPDATE REPORT RECIEVED FROM INTERN AT 1617. PT ARRIVED TO PCU AT 1640 VIA HOSPITAL BED. PT SLID FROM ICU BED TO PCU BED VIA SLIDE SHEET AND 4 STAFF MEMBERS. PT ORIENTED TO ROOM AND CALL LIGHT. PT HAS RECTAL TUBE IN PLACE WITH LIQUID STOOL DRAINING TO GRAVITY. PT HAS RODRIGUEZ IN PLACE, PATENT WITH YELLOW/SALEEM URINE. PT A/OX4 AT TIME OF ARRIVAL. PT ON RA. NO REPORT OF PAIN.
--- NOTE | 2024-06-05 18:57 | NUR ---
PT BP ELEVATED, TREATED PER EMAR. NO OTHER ACUTE CHANGES SINCE ARRIVING TO UNIT. PT ABLE TO EXPRESS NEEDS AND CALLING APPROPIATE.
[2024-06-05] MEDS ORDERED: Banana Flakes/Tos 1 EA Powder Pack PO SCH (21:00)
[2024-06-06 03:15] VITALS: BP 148/59
--- NOTE | 2024-06-06 04:07 | NUR ---
PT REMAINS A&OX4. VSS ON RA. PTS RODRIGUEZ AND FLEXISEAL OUTPUTTING APPROPRIATELY. PT REPORTING 7-8/10 PAIN THROUGHOUT NIGHT. PRNS GIVEN PER SEP. PT AT THIS TIME TOO WEAK TO STAND. PT BEDREST AT THIS TIME AND SHIFTING WEIGHT Q2HR. NO FURTHER QUESTIONS OR CONCERNS AT THIS TIME. WILL CONTINUE TO MONITOR.
[2024-06-06 04:23] LABS: BASOPHILS ABSOLUTE AUTO 0.09 K/mm3 (0.00-0.23); BASOPHILS PERCENT AUTO 0 % (0-2); EOSINOPHILS ABSOLUTE AUTO 0.46 K/mm3 (0.00-0.68); EOSINOPHILS PERCENT AUTO 2 % (0-6); Hematocrit 32.2 % (33.0-51.0); Hemoglobin 10.6 g/dL (11.5-16.0); IMMATURE GRAN ABSOLUTE AUTO 1.08 K/mm3 (0.00-0.10); IMMATURE GRAN PERCENT AUTO 4 % (0-1); LYMPHOCYTES ABSOLUTE AUTO 2.82 K/mm3 (0.84-5.20); LYMPHOCYTES PERCENT AUTO 11 % (21-46); MONOCYTES ABSOLUTE AUTO 1.18 K/mm3 (0.16-1.47); MONOCYTES PERCENT AUTO 5 % (4-13); Mean Corpuscular HGB 31.5 pg (26.0-34.0); Mean Corpuscular HGB Conc 32.9 g/dL (31.5-36.5); Mean Corpuscular Volume 96 fL (80-100); Mean Platelet Volume 11.4 fL (9.1-12.4); NEUTROPHILS PERCENT AUTO 78 % (41-73); NRBC ABSOLUTE 0.03 K/mm3 (0.00-0.02); NRBC Auto 0.1 /100 WBC (0.0-0.2); Platelet Count 239 K/mm3 (150-400); Red Blood Cell Count 3.36 M/mm3 (3.80-5.20); White Blood Cell Count 24.93 K/mm3 (4.00-11.30)
[2024-06-06 04:45] LABS: Albumin, Blood 2.1 g/dL (3.4-5.0); Anion Gap 10 mmol/L (3-11); Blood Urea Nitrogen 29 mg/dL (8-24); Bun/Creatinine Ratio 35.4 (12.0-20.0); CO2, Blood 27 mmol/L (21-32); Calcium, Blood 8.6 mg/dL (8.5-10.1); Chloride, Blood 107 mmol/L (98-108); Creatinine, Blood 0.82 mg/dL (0.40-1.00); Glomerular Filtration Rate 80 (60-); Glucose, Blood 106 mg/dL (70-99); Magnesium, Blood 1.5 mg/dL (1.6-2.4); Phosphorus, Blood 2.7 mg/dL (2.5-4.9); Potassium, Blood 3.1 mmol/L (3.5-5.5); Sodium, Blood 141 mmol/L (136-145)
[2024-06-06] MEDS ORDERED: Mag Sulfate 1 GM/D5% 100ML 100 ML IV STA (06:17)
[2024-06-06] MEDS ORDERED: Potassium Chl 20MEQ/Water100ML 100 ML IV STA (06:19)
[2024-06-06 07:28] VITALS: BP 149/89
[2024-06-06 12:12] VITALS: BP 146/84
[2024-06-06 16:27] VITALS: BP 164/72
[2024-06-06 19:35] VITALS: BP 164/59
[2024-06-06] MEDS ORDERED: Lactobacil 2-S.Thermo-Bifido 1 1 Cap PO SCH (21:00)
[2024-06-06] MEDS ORDERED: Magnesium Oxide 400 MG Tab PO SCH (21:00)
[2024-06-06 23:47] VITALS: BP 144/54
[2024-06-07 02:38] VITALS: BP 146/66
[2024-06-07 03:43] LABS: Hematocrit 37.7 % (33.0-51.0); Mean Corpuscular HGB Conc 31.8 g/dL (31.5-36.5); Mean Corpuscular Volume 97 fL (80-100); NRBC ABSOLUTE 0.02 K/mm3 (0.00-0.02); NRBC Auto 0.1 /100 WBC (0.0-0.2); Platelet Count 238 K/mm3 (150-400); RDW Coefficient Variation 14.1 % (11.7-14.2); RDW Standard Deviation 49.7 fL (35.1-46.3); Red Blood Cell Count 3.87 M/mm3 (3.80-5.20); White Blood Cell Count 26.76 K/mm3 (4.00-11.30)
[2024-06-07 04:00] LABS: Magnesium, Blood 1.7 mg/dL (1.6-2.4)
[2024-06-07 04:07] LABS: Albumin, Blood 2.2 g/dL (3.4-5.0); Anion Gap 9 mmol/L (3-11); Blood Urea Nitrogen 23 mg/dL (8-24); Bun/Creatinine Ratio 31.4 (12.0-20.0); CO2, Blood 27 mmol/L (21-32); Calcium, Blood 8.5 mg/dL (8.5-10.1); Chloride, Blood 107 mmol/L (98-108); Creatinine, Blood 0.73 mg/dL (0.40-1.00); Glomerular Filtration Rate 92 (60-); Glucose, Blood 47 mg/dL (70-99); Phosphorus, Blood 2.9 mg/dL (2.5-4.9); Potassium, Blood 3.3 mmol/L (3.5-5.5); Sodium, Blood 140 mmol/L (136-145)
[2024-06-07 04:21] LABS: BAND PERCENT MAN 1 % (0-8); BASOPHILS PERCENT MAN 0 % (0-2); EOSINOPHILS PERCENT MAN 0 % (0-6); LYMPHOCYTES PERCENT MAN 6 % (21-46); METAMYELOCYTE PERCENT MAN 3 % (0-0); MONOCYTES PERCENT MAN 3 % (4-13); MYELOCYTE ABSOLUTE MAN 0.53 K/mm3 (0.00-0.00); MYELOCYTE PERCENT MAN 2 % (0-0); NEUTROPHILS ABSOLUTE MAN 23.01 K/mm3 (1.96-9.15); SEG NEUTROPHILS PERCENT MAN 85 % (41-73); TOTAL CELLS COUNTED 100
[2024-06-07] MEDS ORDERED: Dextrose 50% 50 ML Syringe IV ONE (04:35)
[2024-06-07] MEDS ORDERED: Potassium Chloride 10 Meq Tablet SA PO SCH (08:00)
[2024-06-07 08:10] VITALS: BP 151/99
[2024-06-07] MEDS ORDERED: Ezetimibe 10 MG Tab PO SCH (09:00)
[2024-06-07] MEDS ORDERED: Lisinopril 20 MG Tab PO SCH (09:00)
[2024-06-07] MEDS ORDERED: Rosuvastatin Calcium 10 MG Tab PO SCH (09:00)
[2024-06-07] MEDS ORDERED: Insulin Regular 100 UNIT/ML 10ML Vial SC SCH (11:30)
[2024-06-07 11:40] VITALS: BP 157/64
--- NOTE | 2024-06-07 12:30 | NUR ---
RODRIGUEZ REMOVED PER PROVIDER ORDERS. PT HAS SINCE HAD A MODERATE AMOUNT OF INCONTINENT URINE OUTPUT.
[2024-06-07 16:29] VITALS: BP 146/74
--- NOTE | 2024-06-07 17:20 | NUR ---
SHIFT SUMMERY: PT A&OX4, FOLLOWS COMMANDS AND MAKES NEEDS KNOWN TO STAFF. PT WAS ABLE TO GET OUT OF BED TODAY TO THE CHAIR AND COMMODE WITH 1P ASSIST. PTS RODRIGUEZ WAS DC'D AND HAS VOIDED A MODERATE AMOUNT SINCE. PT WAS ALSO ABLE TO HAVE SEVERAL BOWEL MOVEMENTS TODAY. DENIED ANY CP, PRESSURE, OR SOB THROUGHOUT SHIFT. PTS ONLY COMPLAINT TO DAY WAS PAIN IN HER BACK WHICH WAS RELIEVED WITH REPOSITIONING AND A HEATING PAD. NO ACUTE NEURO SYMPTOMS. VSS. MAP >65. ON RA. NO SIGNIFICANT EVENTS HAPPENED DURING THIS SHIFT. WILL CONTINUE TO CARE FOR PT TILL END OF SHIFT.
[2024-06-07 19:22] VITALS: BP 150/59
[2024-06-07 23:55] VITALS: BP 153/48
[2024-06-08 03:25] VITALS: BP 131/72
[2024-06-08 04:01] LABS: BASOPHILS ABSOLUTE AUTO 0.06 K/mm3 (0.00-0.23); BASOPHILS PERCENT AUTO 0 % (0-2); EOSINOPHILS ABSOLUTE AUTO 0.35 K/mm3 (0.00-0.68); EOSINOPHILS PERCENT AUTO 2 % (0-6); Hematocrit 33.8 % (33.0-51.0); Hemoglobin 10.9 g/dL (11.5-16.0); IMMATURE GRAN ABSOLUTE AUTO 0.61 K/mm3 (0.00-0.10); IMMATURE GRAN PERCENT AUTO 3 % (0-1); LYMPHOCYTES ABSOLUTE AUTO 2.38 K/mm3 (0.84-5.20); LYMPHOCYTES PERCENT AUTO 13 % (21-46); MONOCYTES ABSOLUTE AUTO 0.96 K/mm3 (0.16-1.47); MONOCYTES PERCENT AUTO 5 % (4-13); Mean Corpuscular HGB 31.5 pg (26.0-34.0); Mean Corpuscular HGB Conc 32.2 g/dL (31.5-36.5); Mean Corpuscular Volume 98 fL (80-100); NEUTROPHILS ABSOLUTE AUTO 13.92 K/mm3 (1.96-9.15); NEUTROPHILS PERCENT AUTO 76 % (41-73); Platelet Count 225 K/mm3 (150-400); RDW Coefficient Variation 14.2 % (11.7-14.2); RDW Standard Deviation 49.8 fL (35.1-46.3); Red Blood Cell Count 3.46 M/mm3 (3.80-5.20); White Blood Cell Count 18.28 K/mm3 (4.00-11.30)
[2024-06-08 04:19] LABS: Albumin, Blood 2.2 g/dL (3.4-5.0); Anion Gap 10 mmol/L (3-11); Blood Urea Nitrogen 16 mg/dL (8-24); Bun/Creatinine Ratio 20.2 (12.0-20.0); CO2, Blood 28 mmol/L (21-32); Calcium, Blood 8.2 mg/dL (8.5-10.1); Chloride, Blood 109 mmol/L (98-108); Creatinine, Blood 0.79 mg/dL (0.40-1.00); Glomerular Filtration Rate 84 (60-); Glucose, Blood 122 mg/dL (70-99); Magnesium, Blood 1.3 mg/dL (1.6-2.4); Phosphorus, Blood 2.2 mg/dL (2.5-4.9); Potassium, Blood 3.5 mmol/L (3.5-5.5); Sodium, Blood 143 mmol/L (136-145)
--- NOTE | 2024-06-08 05:59 | NUR ---
PTs PAIN CONTROLLED WITH HEATING PAD, REPOSITIONS AND PRN OXYCODONE. PT USING BEDSIDE COMMODE AT THIS TIME WITH ONE PERSON ASSIST WITH FWW. PTS VOIDING APPROPRIATELY. PT CONTINUES TO HAVE MULTIPLE BMs THROUGHOUT THE NIGHT. LOOSE AND BROWN. PTS BG'S UNDERCONTROL. PT CONTINUES TO BE EDEMATOUS IN BUE AND BLE. NO C/O CP. NSR @ 78. PT CONTINUES TO BE ON RA @ 98%. NO FURTHER QUESTIONS OR CONCERNS AT THIS TIME. WILL CONTINUE TO MONITOR UNTIL SHIFT CHANGE.
[2024-06-08] MEDS ORDERED: Pantoprazole Sodium 40 MG Tab PO SCH (06:00)
[2024-06-08] MEDS ORDERED: Potassium Phosphate Dibasic 10 MM in Dextrose 5% 250 ML IV STA (06:33)
[2024-06-08] MEDS ORDERED: Magnesium Sulf 2 GM/Water 50ML 50 ML IV ONE (06:35)
[2024-06-08 08:41] VITALS: BP 146/68
[2024-06-08 10:49] VITALS: BP 121/103
[2024-06-08] MEDS ORDERED: Melatonin 5 MG Tablet PO PRN (13:15)
--- NOTE | 2024-06-08 14:03 | NUR ---
Pt has had an eventful morning, working with PT, OT and getting up to take a shower. Pt reports that she is feeling much better. Pt has been encouraged to provide as much self care as possible, since she will be discharging home alone. Pt has been ambulating with FWW. Diet was increased to Carb Cons with 2G NA. Blood sugars have been WNL. Pt still having loose stools but reports it is more formed. Pt was changed to medical status with tele. Pt transferred to Medical Floor Rm [id number]. All belongings were taken with Pt.
[2024-06-08 14:06] VITALS: BP 144/46
--- NOTE | 2024-06-08 14:30 | NUR ---
TRANSFER ASSUMED CARE FROM FIDELINA RN IN PCU AT 1400. PATIENT DENIES ANY CHEST PAIN/PRESSURE, HEADACHE, DIZZINESS, OR SOB. PT TRANSFERRED FROM WHEELCHAIR TO BED WELL. SBA WITH FWW. ROOM AIR. NO ISSUES WITH SKIN. ASSISTED PATIENT WITH DENTURE CLEANING SET UP. PATIENT RESTING IN BED WITH THE CALL LIGHT IN REACH.
[2024-06-08 19:28] VITALS: BP 154/54
[2024-06-09] MEDS ORDERED: Furosemide 10 MG / ML 2ML Vial IV ONE (00:45)
[2024-06-09 02:39] VITALS: BP 149/56
--- NOTE | 2024-06-09 04:30 | NUR ---
SHIFT SUMMARY PT A&Ox4 AND PLEASANT. MEDICATED FOR PAIN PER EMAR WITH GOOD EFFECT. NO EVENTS ON TELE. DR YA IN TO SEE PT DURING THE NIGHT AND ORDER GIVEN FOR ONE TIME DOSE OF LASIX D/T EDEMA IN BLE. UP TO BSC INDEPENDENTLY. NO EVENTS ON TELE. BLOOD GLUCOSE 191 AT HS. VSS. BED IN LOWEST POSITION AND CALL LIGHT IN REACH.
[2024-06-09 06:15] LABS: BASOPHILS ABSOLUTE AUTO 0.04 K/mm3 (0.00-0.23); BASOPHILS PERCENT AUTO 0 % (0-2); EOSINOPHILS ABSOLUTE AUTO 0.35 K/mm3 (0.00-0.68); EOSINOPHILS PERCENT AUTO 2 % (0-6); Hematocrit 32.2 % (33.0-51.0); Hemoglobin 10.5 g/dL (11.5-16.0); IMMATURE GRAN ABSOLUTE AUTO 0.21 K/mm3 (0.00-0.10); IMMATURE GRAN PERCENT AUTO 2 % (0-1); LYMPHOCYTES ABSOLUTE AUTO 2.21 K/mm3 (0.84-5.20); LYMPHOCYTES PERCENT AUTO 15 % (21-46); MONOCYTES ABSOLUTE AUTO 1.15 K/mm3 (0.16-1.47); MONOCYTES PERCENT AUTO 8 % (4-13); Mean Corpuscular HGB 32.2 pg (26.0-34.0); Mean Corpuscular HGB Conc 32.6 g/dL (31.5-36.5); Mean Corpuscular Volume 99 fL (80-100); Mean Platelet Volume 11.5 fL (9.1-12.4); NEUTROPHILS ABSOLUTE AUTO 10.43 K/mm3 (1.96-9.15); NEUTROPHILS PERCENT AUTO 72 % (41-73); Platelet Count 245 K/mm3 (150-400); RDW Coefficient Variation 14.5 % (11.7-14.2); RDW Standard Deviation 51.2 fL (35.1-46.3); Red Blood Cell Count 3.26 M/mm3 (3.80-5.20); White Blood Cell Count 14.39 K/mm3 (4.00-11.30)
[2024-06-09 06:49] LABS: Albumin, Blood 2.3 g/dL (3.4-5.0); Anion Gap 11 mmol/L (3-11); Blood Urea Nitrogen 15 mg/dL (8-24); Bun/Creatinine Ratio 16.7 (12.0-20.0); CO2, Blood 28 mmol/L (21-32); Calcium, Blood 8.2 mg/dL (8.5-10.1); Chloride, Blood 106 mmol/L (98-108); Glomerular Filtration Rate 72 (60-); Glucose, Blood 202 mg/dL (70-99); Magnesium, Blood 1.4 mg/dL (1.6-2.4); Phosphorus, Blood 2.9 mg/dL (2.5-4.9); Potassium, Blood 3.6 mmol/L (3.5-5.5); Sodium, Blood 141 mmol/L (136-145)
[2024-06-09 07:13] VITALS: BP 146/56
[2024-06-09] MEDS ORDERED: Magnesium Sulf 2 GM/Water 50ML 50 ML IV STA (07:38)
[2024-06-09] MEDS ORDERED: MELATONIN5 M1 PO (13:56)
--- NOTE | 2024-06-09 14:58 | NUR ---
PT DISCHARGED AT 1440 AOX4 AND COOPERATIVE OF CARE. PT HAD PAPERWORK REVIEWED AND EDUCATIONAL MATERIAL SENT WITH HER. NO DISTRESS NOTED. FRIEND ARRIVED TO TRANSPORT HOME AT N ENTRANCE.
== END 2024-06-09 15:00 | disposition home health service (06) | DRG 682 ==
LOC: ER 20:39 → PCU 23:30 → ICUE 23:30 → ERHOLD 23:30 → PCU 06-01 09:01 → ICUE 06-01 12:25 → PCU 06-05 16:36 → MEDS 06-08 13:58
PROVIDERS: Emergency Medicine; Family Medicine; Internal Medicine; Internal Medicine Nephrology; ADMIT Surgery
PROC: 0T9B70Z Drainage of Bladder with Drainage Device, Via Natural or Artificial Opening (ICD-10-PCS; principal; 2024-06-01)
PROC: 4A033R1 Measurement of Arterial Saturation, Peripheral, Percutaneous Approach (ICD-10-PCS; 2024-06-01)
DX: N17.9 Acute kidney failure, unspecified (principal); E10.10 Type 1 diabetes mellitus with ketoacidosis without coma; G93.41 Metabolic encephalopathy; E87.1 Hypo-osmolality and hyponatremia; I13.0 Hypertensive heart and chronic kidney disease with heart failure and stage 1 through stage 4 chronic kidney disease, or unspecified chronic kidney disease; K56.609 Unspecified intestinal obstruction, unspecified as to partial versus complete obstruction; E87.0 Hyperosmolality and hypernatremia; M62.82 Rhabdomyolysis; Z66 Do not resuscitate; N25.81 Secondary hyperparathyroidism of renal origin; M35.00 Sjogren syndrome, unspecified; N18.30 Chronic kidney disease, stage 3 unspecified; I50.9 Heart failure, unspecified; G47.00 Insomnia, unspecified; F43.10 Post-traumatic stress disorder, unspecified; K21.9 Gastro-esophageal reflux disease without esophagitis; F32.A Depression, unspecified; K74.60 Unspecified cirrhosis of liver; D86.9 Sarcoidosis, unspecified; D63.1 Anemia in chronic kidney disease; E66.9 Obesity, unspecified; Z68.31 Body mass index [BMI] 31.0-31.9, adult; E10.22 Type 1 diabetes mellitus with diabetic chronic kidney disease; E10.42 Type 1 diabetes mellitus with diabetic polyneuropathy; I25.10 Atherosclerotic heart disease of native coronary artery without angina pectoris; I48.91 Unspecified atrial fibrillation; E83.42 Hypomagnesemia; E87.6 Hypokalemia; E83.39 Other disorders of phosphorus metabolism; E10.649 Type 1 diabetes mellitus with hypoglycemia without coma; Z28.21 Immunization not carried out because of patient refusal; Z86.73 Personal history of transient ischemic attack (TIA), and cerebral infarction without residual deficits; Z79.4 Long term (current) use of insulin; Z79.891 Long term (current) use of opiate analgesic; Z79.899 Other long term (current) drug therapy; I25.2 Old myocardial infarction; Z95.1 Presence of aortocoronary bypass graft; Z90.710 Acquired absence of both cervix and uterus; Z86.79 Personal history of other diseases of the circulatory system; Z88.8 Allergy status to other drugs, medicaments and biological substances; Z88.6 Allergy status to analgesic agent; Z87.19 Personal history of other diseases of the digestive system; Z91.09 Other allergy status, other than to drugs and biological substances
CPT/HCPCS: 0241U; 36415; 36600; 51702; 71045; 74019; 74176; 74250; 80048; 80053; 80069; 81001; 81003; 82010; 82140; 82550; 82803; 82947; 83605; 83735; 83930; 84145; 84295; 85014; 85018; 85025; 85610; 87040; 87086; 93005; 93010; 94760; 94762; 96360; 97110; 97161; 97166; 97530; 97535; 99285-25; A9270; C1751; J0360; J0612; J0696; J0881; J1171; J1815; J1940; J2405; J2470; J3475; J3480; J7030; J7042; J7050; J7060; J7070

== ENCOUNTER 2024-06-17 09:25 | Day surgery (SDC) | payer OTHER ==
[~2024-06-17] VITALS: Ht 154.9 cm; Wt 79.9 kg
[~2024-06-17 09:25] MED LIST changes: +Balanced Salt Epinephrine Irrigation Solution 500 mL IR SCH; +Lidocaine HCl/Pf 1% 5 ML VIAL XX SCH; +MELATONIN5 M1 PO; +Moxifloxacin HCL 0.5 MG/0.1 ML 0.4MLSYR RIGHTEYE SCH; +PHENYLEPHRINE\\TROPICAMIDE\\TETRACAINE OPHTHALMIC DILATING SOLN RIGHTEYE PRN; +Povidone-Iodine 450 DROP/30 ML Solution ONE; +Povidone-Iodine 450 DROP/30 ML Solution RIGHTEYE SCH; +Tetracaine HCl/Pf 0.5% Opth Soln 4 ml ONE
[2024-06-17] MEDS ORDERED: Midazolam HCl 1MG / ML 2ML Vial ONE (11:04)
[2024-06-17 11:42] VITALS: BP 169/65
== END 2024-06-17 11:45 | disposition home or self-care (01) ==
LOC: ORSCSDS 09:25
PROVIDERS: Student in an Organized Health Care Education/Training Program
PROC: 08RJ3JZ Replacement of Right Lens with Synthetic Substitute, Percutaneous Approach (ICD-10-PCS; principal; 2024-06-17 11:00)
DX: E10.36 Type 1 diabetes mellitus with diabetic cataract (principal); H25.811 Combined forms of age-related cataract, right eye; Z96.1 Presence of intraocular lens; I12.9 Hypertensive chronic kidney disease with stage 1 through stage 4 chronic kidney disease, or unspecified chronic kidney disease; E10.22 Type 1 diabetes mellitus with diabetic chronic kidney disease; N18.9 Chronic kidney disease, unspecified; E78.5 Hyperlipidemia, unspecified; D86.9 Sarcoidosis, unspecified; Z86.73 Personal history of transient ischemic attack (TIA), and cerebral infarction without residual deficits; E66.9 Obesity, unspecified; Z68.33 Body mass index [BMI] 33.0-33.9, adult
CPT/HCPCS: 82947; J2250; V2632

== ENCOUNTER 2025-03-06 11:11 | Inpatient (IN) | payer OTHER ==
[~2025-03-06] VITALS: Ht 154.9 cm; Wt 75.7 kg
[~2025-03-06 11:11] MED LIST changes: -Balanced Salt Epinephrine Irrigation Solution 500 mL IR SCH; -Lidocaine HCl/Pf 1% 5 ML VIAL XX SCH; -Moxifloxacin HCL 0.5 MG/0.1 ML 0.4MLSYR RIGHTEYE SCH; -PHENYLEPHRINE\\TROPICAMIDE\\TETRACAINE OPHTHALMIC DILATING SOLN RIGHTEYE PRN; -Povidone-Iodine 450 DROP/30 ML Solution ONE; -Povidone-Iodine 450 DROP/30 ML Solution RIGHTEYE SCH; -Tetracaine HCl/Pf 0.5% Opth Soln 4 ml ONE
[2025-03-06 11:25] LABS: Calcium, Ionized (POC) 0.87 mmol/L (1.10-1.46); Chloride (POC) 90 mmol/L (98-108); Creatinine (POC) 7.1 mg/dL (0.6-1.0); Glucose (ISTAT POC) 289 mg/dL (70-99); Hematocrit (POC) 45.0 % (36.0-46.0); Hemoglobin (POC) 15.3 g/dL (12.0-16.0); Potassium (POC) 3.4 mmol/L (3.5-5.5); Sodium (POC) 132 mmol/L (135-148); Total CO2 (POC) 27 mmol/L (21-32)
[2025-03-06] MEDS ORDERED: Morphine Sulfate 4 MG/1 ML Injection IV ONE (11:25)
[2025-03-06] MEDS ORDERED: NS 1,000 ML IV SCH ×2 (11:25→15:50)
[2025-03-06 11:37] LABS: BASOPHILS ABSOLUTE AUTO 0.06 K/mm3 (0.00-0.23); BASOPHILS PERCENT AUTO 0 % (0-2); EOSINOPHILS ABSOLUTE AUTO 0.02 K/mm3 (0.00-0.68); EOSINOPHILS PERCENT AUTO 0 % (0-6); Hematocrit 40.1 % (33.0-51.0); Hemoglobin 13.0 g/dL (11.5-16.0); IMMATURE GRAN ABSOLUTE AUTO 0.11 K/mm3 (0.00-0.10); IMMATURE GRAN PERCENT AUTO 1 % (0-1); LYMPHOCYTES ABSOLUTE AUTO 1.15 K/mm3 (0.84-5.20); LYMPHOCYTES PERCENT AUTO 7 % (21-46); MONOCYTES ABSOLUTE AUTO 1.84 K/mm3 (0.16-1.47); MONOCYTES PERCENT AUTO 11 % (4-13); Mean Corpuscular HGB Conc 32.4 g/dL (31.5-36.5); Mean Corpuscular Volume 92 fL (80-100); NEUTROPHILS ABSOLUTE AUTO 13.46 K/mm3 (1.96-9.15); NEUTROPHILS PERCENT AUTO 81 % (41-73); NRBC ABSOLUTE 0.00 K/mm3 (0.00-0.02); NRBC Auto 0.0 /100 WBC (0.0-0.2); Platelet Count 266 K/mm3 (150-400); RDW Coefficient Variation 14.9 % (11.7-14.2); RDW Standard Deviation 50.4 fL (35.1-46.3)
[2025-03-06 12:06] LABS: Alanine Aminotransfer (ALT/SGP 25.0 U/L (12-78); Albumin, Blood 3.1 g/dL (3.4-5.0); Albumin/Globulin Ratio 0.8 (0.8-1.8); Anion Gap 17.0 mmol/L (3-11); Aspartate Aminotrans (AST/SGOT 97.0 U/L (12-37); Bilirubin, Total 0.8 mg/dL (0.1-1.0); Blood Urea Nitrogen 73.0 mg/dL (8-24); CO2, Blood 26.0 mmol/L (21-32); Calcium, Blood 7.1 mg/dL (8.5-10.1); Chloride, Blood 89.0 mmol/L (98-108); Creatinine, Blood 7.04 mg/dL (0.40-1.00); Globulin, Blood 4.0 g/dL (2.2-4.0); Glucose, Blood 287.0 mg/dL (70-99); Magnesium, Blood 1.3 mg/dL (1.6-2.4); Potassium, Blood 3.8 mmol/L (3.5-5.5); Sodium, Blood 128.0 mmol/L (136-145); Total Protein, Blood 7.1 g/dL (6.4-8.2)
[2025-03-06] MEDS ORDERED: Nitroglycerin 1 INCH/GM PKT TOP ONE (13:10)
[2025-03-06] MEDS ORDERED: Magnesium Sulf 2 GM/Water 50ML 50 ML IV ONE (13:50)
[2025-03-06 13:52] LABS: Anti-Xa UFH, PHA Monitoring <0.10 IU/mL; Prothrombin Time Results 13.3 Sec (9.7-11.5)
[2025-03-06] MEDS ORDERED: Dose Adjust by Pharmacy XX STA ×2 (14:03→21:57)
[2025-03-06] MEDS ORDERED: Heparin Sodium 5000 Units/ML 1ML MDV IV ONE (14:05)
[2025-03-06] MEDS ORDERED: Heparin Sodium,Porcine/0.5 NS 500 ML IV SCH (14:05)
[2025-03-06 15:48] LABS: pH Blood Venous 7.21 (7.34-7.37)
[2025-03-06] MEDS ORDERED: Darbepoetin (Pharmacy Consult) SC SCH (15:50)
[2025-03-06 16:20] VITALS: BP 103/69
[2025-03-06] MEDS ORDERED: MORP15ER PO (16:40)
[2025-03-06] MEDS ORDERED: Sodium Bicarb 8.4% Inj 150 MEQ in Dextrose 5% 1,000 ML IV SCH (17:00)
[2025-03-06] MEDS ORDERED: CALCIUM GLUC IN NACL, ISO-OSM 50 ML IV ONE (19:05)
--- NOTE | 2025-03-06 19:28 | NUR ---
SHIFT SUMMARY PATIENT IS ALERT AND ORIENTED X4 ABLE TO FOLLOW COMMANDS AND MAKE NEEDS KNOWN. PATIENT HAS INTERMITTENT SPASMS BILATERAL IN EXTREMITIES. PATIENT ON TELE, HR IN 70'S-100'S, PATIENT DENIES PRESENCE OF CHEST PAIN OR PRESSURE, DOES REPORT SHORTNESS OF BREATH. ABDOMINAL DISTENTION NOTED, TENDERNESS WITH PALPATION. PATIENT HAS NOT BEEN ABLE TO EAT OR DRINK CONSISTENTLY X4 DAYS, PATIENT REPORTS NO URINE OUTPUT FOR THOSE FOUR DAYS. BLADDER SCAN PERFORMED, 314 ML NOTED, RODRIGUEZ CATHETER PLACED PER DR YA VERBAL ORDER, SALEEM COLORED URINE PRESENT. PATIENT USES FWW INTERMITTENTLY AT BASELINE, NOT AMBULATING CURRENTLY. PATIENT IN BED, BED IN LOWEST POSITION, CALL LIGHT WITHIN REACH.
[2025-03-06 19:35] VITALS: BP 119/64
[2025-03-06 20:15] LABS: Source, Urine Straight Cath
[2025-03-06 20:18] LABS: Bilirubin, Urine Neg (Neg); Glucose Qualitative, Urine 3+ (Neg); Ketones, Urine Neg (Neg); Leukocyte Esterase, Urine Neg (Neg); Protein, Urine 4+ (Neg); Specific Gravity, Urine 1.015 (1.003-1.022); Urobilinogen, Urine NORM (Normal)
[2025-03-06 20:24] LABS: Color, Urine Amber (P-Yellow)
[2025-03-06 20:28] LABS: Red Blood Cells, Urine 0-2 /hpf (0-2)
[2025-03-07] VITALS (7 sets, daily range): BP systolic 98–132; BP diastolic 52–90
[2025-03-07] MEDS ORDERED: FentaNYL Citrate 50 MCG/ML 2 ML Injection IV PRN (03:40)
--- NOTE | 2025-03-07 05:52 | NUR ---
SHIFT SUMMARY PT A&O X4, CALM, COOPERATIVE TO CARE. HR IN THE 80'S, AFIB. SHE DENIES ANY CP/PRESSURE T/O NIGHT. SHE HAS SOME NUMB/TINGLING IN BLE'S, SHE REPORTS THIS IS CHRONIC AND HAS HX OF NEUROPATHY. SHE IS ON 3L O2 VIA NC, SpO2 >92%, SHE HAS SOME SOB THAT IS WORSE WITH TALKING/EXERTION. PT DENIES OXYGEN USE AT HOME. SHE HAS A RODRIGUEZ IN PLACE, DRAINING TO GRAVITY. PT REPORTS MINIMAL URINE OUTPUT AT BASELINE. SHE HAS GENERALIZED WEAKNESS AND PAIN. PT TAKES PAIN MEDICATION FOR HER CHRONIC PAIN, CALL PLACED TO RESIDENT TO GET MEDICATION ORDERED TO MANAGE. PT RECIEVED IV PAIN MEDICATION AND REPORT IMPROVMENT IN PAIN. HEPARIN GTT INFUSING PER EMAR. BICARB INFUSING PER EMAR. PT RESTIGN IN BED AT THIS TIME. CALL LIGHT IN REACH. WILL MONITOR PT AND REPORT TO ONCOMING RN.
[2025-03-07 06:40] LABS: BASOPHILS ABSOLUTE AUTO 0.04 K/mm3 (0.00-0.23); BASOPHILS PERCENT AUTO 0 % (0-2); EOSINOPHILS ABSOLUTE AUTO 0.20 K/mm3 (0.00-0.68); EOSINOPHILS PERCENT AUTO 2 % (0-6); Hematocrit 32.7 % (33.0-51.0); Hemoglobin 10.7 g/dL (11.5-16.0); IMMATURE GRAN ABSOLUTE AUTO 0.04 K/mm3 (0.00-0.10); IMMATURE GRAN PERCENT AUTO 0 % (0-1); LYMPHOCYTES ABSOLUTE AUTO 1.99 K/mm3 (0.84-5.20); LYMPHOCYTES PERCENT AUTO 16 % (21-46); MONOCYTES ABSOLUTE AUTO 1.39 K/mm3 (0.16-1.47); MONOCYTES PERCENT AUTO 11 % (4-13); Mean Corpuscular HGB Conc 32.7 g/dL (31.5-36.5); Mean Corpuscular Volume 90 fL (80-100); NEUTROPHILS ABSOLUTE AUTO 8.77 K/mm3 (1.96-9.15); NEUTROPHILS PERCENT AUTO 71 % (41-73); NRBC ABSOLUTE 0.00 K/mm3 (0.00-0.02); NRBC Auto 0.0 /100 WBC (0.0-0.2); Platelet Count 177 K/mm3 (150-400); RDW Coefficient Variation 14.8 % (11.7-14.2); RDW Standard Deviation 49.3 fL (35.1-46.3)
[2025-03-07 06:46] LABS: Alanine Aminotransfer (ALT/SGP 29.0 U/L (12-78); Albumin, Blood 2.5 g/dL (3.4-5.0); Albumin/Globulin Ratio 0.8 (0.8-1.8); Anion Gap 17.0 mmol/L (3-11); Aspartate Aminotrans (AST/SGOT 79.0 U/L (12-37); Bilirubin, Total 0.9 mg/dL (0.1-1.0); Blood Urea Nitrogen 75.0 mg/dL (8-24); CO2, Blood 26.0 mmol/L (21-32); Calcium, Blood 7.3 mg/dL (8.5-10.1); Chloride, Blood 90.0 mmol/L (98-108); Creatinine, Blood 6.26 mg/dL (0.40-1.00); Globulin, Blood 3.3 g/dL (2.2-4.0); Glucose, Blood 229.0 mg/dL (70-99); Magnesium, Blood 1.6 mg/dL (1.6-2.4); Phosphorus, Blood 7.7 mg/dL (2.5-4.9); Potassium, Blood 3.0 mmol/L (3.5-5.5); Sodium, Blood 130.0 mmol/L (136-145); Thyroid Stimulating Hormone 0.205 uIU/mL (0.360-4.800); Total Protein, Blood 5.8 g/dL (6.4-8.2); Uric Acid, Blood 10.3 mg/dL (2.6-6.0)
[2025-03-07] MEDS ORDERED: Sodium Bicarb 8.4% Inj 150 MEQ in Dextrose 5% 1,000 ML IV SCH (07:30)
[2025-03-07] MEDS ORDERED: Potassium Chl 20MEQ/Water100ML 100 ML IV STA (07:38)
[2025-03-07] MEDS ORDERED: Insulin Human Lispro 100 Units/ML 3ML Syringe SC SCH (08:30)
[2025-03-07] MEDS ORDERED: Insulin Glargine,Hum.Rec.Anlog 100 UNIT/ML 3MLSYR SC SCH (09:00)
[2025-03-07] MEDS ORDERED: CefTRIAXone Sodium 1,000 MG in NS 100 ML IV SCH (09:00)
[2025-03-07 09:39] LABS: pH Blood Venous 7.39 (7.34-7.37)
[2025-03-07] MEDS ORDERED: NS 1,000 ML IV SCH (10:05)
[2025-03-07] MEDS ORDERED: Fluticasone 0.05% Nasal Spray PRN (10:25)
[2025-03-07] MEDS ORDERED: LORA10ER PO (12:14)
[2025-03-07] MEDS ORDERED: [UNRECOGNIZED DRUG - CODE] PO (12:15)
[2025-03-07] MEDS ORDERED: Dose Adjust by Pharmacy XX STA (17:14)
--- NOTE | 2025-03-07 18:05 | NUR ---
UPDATE PATIENT REPORTING INCREASED LEVELS OF ANXIETY AND TREMORS. PATIENT TAKES OXYCODONE AND MORPHINE AT [facility] FOR PAIN MANAGEMENT. THIS RN HAS CONCERNS FOR POSSIBLE WITHDRAWALS PATIENT TOOK LAST DOSE OF HOME PAIN MEDICATIONS ON 03/05/2025. CONTACTED DR YA REGARDING KIDNEY FUNCTION AND POSSIBLE PAIN MANAGEMENT ORDERS. PER DR YA, OKAY TO RESTART HOME PAIN MANAGEMENT MEDICATION, HOSPITALIST TO MANAGE. DR SCHULTZ CONTACTED, NEW ORDERS RECEIVED.
--- NOTE | 2025-03-07 18:13 | NUR ---
SHIFT SUMMARY PATIENT IS ALERT AND ORIENTED, ABLE TO FOLLOW COMMANDS AND MAKE NEEDS KNOWN. PATIENT HAS DEVELOPED INCREASED FREQUENCY OF TREMORS AND ANXIETY TOWARD END OF SHIFT, POSSIBLE CONCERN FOR WITHDRAWALS, MD CONTACTED, NEW ORDERS RECEIVED. TELE IN PLACE, AFIB 80'S-90'S, SPO2 >90% ON 2L VIA NC. PATIENT DENIES CHEST PAIN OR PRESSURE. INTERMITTENT DEEP RESPIRATIONS NOTED, PATIENT IN NO SIGNS OF DISTRESS, DENIES SHORTNESS OF BREATH. PATIENT DENIES N/V/D, DECREASED APPETITE. RODRIGUEZ CATHETER IN PLACE, PATENT AND DRAINING TO GRAVITY, 300 ML OF SALEEM URINE THIS SHIFT, DR YA MADE AWARE. VARIOUS BRUISING SCATTERED THROUGHOUT, SEE SHIFT ASSESSMENT FOR MORE DETAILS. PATIENT EXPERIENCING INCREASED FATIGUE, HAS NOT AMBULATED THIS SHIFT. PATIENT IN BED, BED IN LOWEST POSITION, CALL LIGHT WITHIN REACH.
--- NOTE | 2025-03-07 22:31 | NUR ---
REPORT GIVEN TO ANABEL BARROS.
--- NOTE | 2025-03-07 23:13 | NUR ---
ASSUMPTION OF CARE THIS RN ASSUMED CARE OF PT AT 0. REPORT RECIEVED FROM BILL LITTLE. PT A&O X4, CALM. HR IN THE 80'S, AFIB, SEH DENIES ANY CP/PRESSURE. SpO2 >92%, WITH SHALLOW RESPIRATIONS, ETCO2 MONITOR ON. PT HAS RODRIGUEZ IN PLACE, DRAINING TO GRAVITY. HEPARIN GTT INFUSING PER EMAR. PT RESTING IN BED. SHE DENIES ANY QUESTIONS/CONCERNS. CALL LIGHT IN REACH.
[2025-03-08] MEDS ORDERED: Dose Adjust by Pharmacy XX STA ×2 (00:08→06:01)
[2025-03-08 03:39] VITALS: BP 130/80
[2025-03-08 05:26] LABS: BASOPHILS ABSOLUTE AUTO 0.04 K/mm3 (0.00-0.23); BASOPHILS PERCENT AUTO 0 % (0-2); EOSINOPHILS ABSOLUTE AUTO 0.30 K/mm3 (0.00-0.68); EOSINOPHILS PERCENT AUTO 3 % (0-6); Hematocrit 32.6 % (33.0-51.0); Hemoglobin 10.7 g/dL (11.5-16.0); IMMATURE GRAN ABSOLUTE AUTO 0.05 K/mm3 (0.00-0.10); IMMATURE GRAN PERCENT AUTO 0 % (0-1); LYMPHOCYTES ABSOLUTE AUTO 1.81 K/mm3 (0.84-5.20); LYMPHOCYTES PERCENT AUTO 16 % (21-46); MONOCYTES ABSOLUTE AUTO 1.28 K/mm3 (0.16-1.47); MONOCYTES PERCENT AUTO 11 % (4-13); Mean Corpuscular HGB Conc 32.8 g/dL (31.5-36.5); Mean Corpuscular Volume 90 fL (80-100); NEUTROPHILS ABSOLUTE AUTO 8.12 K/mm3 (1.96-9.15); NEUTROPHILS PERCENT AUTO 70 % (41-73); NRBC ABSOLUTE 0.00 K/mm3 (0.00-0.02); NRBC Auto 0.0 /100 WBC (0.0-0.2); Platelet Count 206 K/mm3 (150-400); RDW Coefficient Variation 14.7 % (11.7-14.2); RDW Standard Deviation 48.8 fL (35.1-46.3)
[2025-03-08 05:47] LABS: Albumin, Blood 2.6 g/dL (3.4-5.0); Anion Gap 13 mmol/L (3-11); Blood Urea Nitrogen 82 mg/dL (8-24); CO2, Blood 27 mmol/L (21-32); Calcium, Blood 7.9 mg/dL (8.5-10.1); Chloride, Blood 95 mmol/L (98-108); Creatinine, Blood 3.88 mg/dL (0.40-1.00); Glucose, Blood 54 mg/dL (70-99); Magnesium, Blood 1.5 mg/dL (1.6-2.4); Phosphorus, Blood 5.8 mg/dL (2.5-4.9); Potassium, Blood 3.0 mmol/L (3.5-5.5); Sodium, Blood 132 mmol/L (136-145)
--- NOTE | 2025-03-08 05:58 | NUR ---
SHIFT SUMMARY PT A&O X4, CALM, COOPERATIVE TO CARE. HR 80'S, AFIB. SHE DENIES ANY CP/PRESSURE T/O NIGHT. SBP STABLE. SPO2 >90% 2L VIA NC. PT HAS INTERMITTENT SOB WITH EXERTION/TALKING. RODRIGUEZ IN PLACE, DRAINING TO GRAVITY. PT DENIES ANY N/A, SHE HAS BEEN TOLERATING PO INTAKE WELL. HEPARIN GTT INFUSING PER EMAR. NS INFUSING PER EMAR. PT RESTING IN BED AT THIS TIME. CALL LIGHT IN REACH. WILL MONITOR PT AND REPORT TO ONCOMING RN.
[2025-03-08] MEDS ORDERED: Potassium Chl 20MEQ/Water100ML 100 ML IV ONE (07:00)
[2025-03-08] MEDS ORDERED: DEXTROSE 5% IV ONE (07:30)
[2025-03-08] MEDS ORDERED: MAGNESIUM SULFATE IV ONE (07:30)
[2025-03-08 07:39] VITALS: BP 150/81
[2025-03-08 11:52] VITALS: BP 165/88
[2025-03-08] MEDS ORDERED: CLARITIN D PO (14:51)
[2025-03-08 15:31] VITALS: BP 116/60
--- NOTE | 2025-03-08 17:51 | NUR ---
DAY SHIFT SUMMARY SHABNAM IS ORIENTED X4, ABLE TO MAKE NEEDS KNOWN. PLEASANT AND COOPERATIVE. ANXIOUS AT TIMES. OCCASSIONAL WORD FINDING DIFFICULTY BUT CLEARS WITH REPEATING HERSELF. VSS ON 2L NC. UNABLE TO TITRATE OFF O2 AT THIS TIME. PLAN FOR CONTINUED IVF PER DR. YA. LESS SEVERE TREMORS TO UE WHEN AWAKE THAN PRIOR SHIFT. MEDICATED FOR PAIN PER EMAR. UP TO CHAIR FOR MEALS. 1-2P ASSIST WITH FWW. BED LOCKED AND IN LOWEST POSITION. CALL LIGHT WITHIN REACH
[2025-03-08 20:15] VITALS: BP 143/76
[2025-03-08] MEDS ORDERED: Insulin Glargine,Hum.Rec.Anlog 100 UNIT/ML 3MLSYR SC SCH (21:00)
[2025-03-08 22:31] LABS: VITAMIN D,1,25-DIHYDROXY 36.8 pg/mL (19.9-79.3)
[2025-03-08 23:33] VITALS: BP 148/83
[2025-03-09] VITALS (14 sets, daily range): BP systolic 146–201; BP diastolic 65–118
[2025-03-09 04:34] LABS: BASOPHILS ABSOLUTE AUTO 0.05 K/mm3 (0.00-0.23); BASOPHILS PERCENT AUTO 1 % (0-2); EOSINOPHILS ABSOLUTE AUTO 0.34 K/mm3 (0.00-0.68); EOSINOPHILS PERCENT AUTO 4 % (0-6); Hematocrit 34.5 % (33.0-51.0); Hemoglobin 11.0 g/dL (11.5-16.0); IMMATURE GRAN ABSOLUTE AUTO 0.03 K/mm3 (0.00-0.10); IMMATURE GRAN PERCENT AUTO 0 % (0-1); LYMPHOCYTES ABSOLUTE AUTO 1.36 K/mm3 (0.84-5.20); LYMPHOCYTES PERCENT AUTO 16 % (21-46); MONOCYTES ABSOLUTE AUTO 1.14 K/mm3 (0.16-1.47); MONOCYTES PERCENT AUTO 14 % (4-13); Mean Corpuscular HGB Conc 31.9 g/dL (31.5-36.5); Mean Corpuscular Volume 92 fL (80-100); NEUTROPHILS ABSOLUTE AUTO 5.48 K/mm3 (1.96-9.15); NEUTROPHILS PERCENT AUTO 65 % (41-73); NRBC ABSOLUTE 0.00 K/mm3 (0.00-0.02); NRBC Auto 0.0 /100 WBC (0.0-0.2); Platelet Count 227 K/mm3 (150-400); RDW Coefficient Variation 14.7 % (11.7-14.2); RDW Standard Deviation 49.5 fL (35.1-46.3)
[2025-03-09 04:55] LABS: Albumin, Blood 2.7 g/dL (3.4-5.0); Anion Gap 10 mmol/L (3-11); Blood Urea Nitrogen 61 mg/dL (8-24); CO2, Blood 29 mmol/L (21-32); Calcium, Blood 8.7 mg/dL (8.5-10.1); Chloride, Blood 102 mmol/L (98-108); Creatinine, Blood 1.95 mg/dL (0.40-1.00); Glucose, Blood 92 mg/dL (70-99); Magnesium, Blood 1.8 mg/dL (1.6-2.4); Phosphorus, Blood 3.7 mg/dL (2.5-4.9); Potassium, Blood 3.8 mmol/L (3.5-5.5); Sodium, Blood 137 mmol/L (136-145)
--- NOTE | 2025-03-09 06:24 | NUR ---
SHIFT SUMMARY PATIENT ALERT AND ORINETED X4. MEDICATED PER EMAR FOR PAIN. DR YA ROUNDED ON PATIENT THIS MORNING AND DISCONTINUED HER NORMAL SALINE. CONTINUES ON 2 LITERS O2 VIA NC WITH SPO2 >90%. VITAL SIGNS STABLE. NO ACUTE ISSUES NOTED OVERNIGHT. WILL CONTINUE TO MONITOR. CALL LIGHT WITHIN REACH.
[2025-03-09] MEDS ORDERED: HydrALAZINE HCl 20 MG / ML 1ML Vial IV PRN (10:15)
[2025-03-09] MEDS ORDERED: Polyethylene Glycol 3350 17 gm PO PRN (10:20)
--- NOTE | 2025-03-09 12:15 | NUR ---
1030 IV apresoline was given for hypertension. Pt states that she is having a lot of generalized pain. She seems to be very uncomfortable but is having difficulty verbalizing specifically what ails her, besides pain. Attempting to have BM. States back pain and no BM since admission. Miralax was ordered. Walked into the bathroom with minimal assist, using the walker.
[2025-03-09] MEDS ORDERED: Ondansetron HCl 2 MG / ML 2ML Vial IV PRN (13:05)
--- NOTE | 2025-03-09 13:07 | NUR ---
Pt is feeling painful, nauseated, weak, and appears listless. She is oriented but says that she is feeling especially worse today. New orders for zofran, and antihypertensive as her b/p did not respond adequately to the apresoline given earlier.
[2025-03-09] MEDS ORDERED: Labetalol HCL 5 MG/ML 4ML Injection (Single Dose) IV PRN (13:10)
--- NOTE | 2025-03-09 13:27 | NUR ---
Dr. Villarreal states ok to restart lisinopril from nephrology stand point.
--- NOTE | 2025-03-09 13:58 | NUR ---
Pt states that her nausea is still present, as well as her dizzyness. She looks like she does not feel well at all. She was able to walk to the bathroom to void. Blood pressure is lower after receiving labetolol IV. Dr Bass software integrator called and discussed blood pressure control. She requested that I call Villarreal the food service team member to ask if ok to restart pt's home lisinopril. He said yes.
--- NOTE | 2025-03-09 16:13 | NUR ---
Blood pressure normalizing. Pt states her nausea and pain are minimal at this time. She still has not had much to eat or drink today. Given diet pepsi twice, ice water , iced tea and glucerna which she has requested but she has had very little of any of them over the course of the day. She is resting in bed with her eyes closed most of the time.
--- NOTE | 2025-03-09 18:34 | NUR ---
SHIFT SUMMARY PT IS LETHARGIC AND ORIENTED TO SELF, MONTH, AND HOSPITAL. SHE IS UNABLE TO APPROPRIATELY RESPOND TO WHAT DAY OF THE WEEK IT IS, OR WHAT THE DATE IS. INSTEAD, SHE REPEATS THAT IT IS . PT IS ALSO UNABLE TO NAME THE HOSPITAL, SHE JUST KNOWS SHE IS IN ONE. AMBULATES WITH A 1 AST. TO THE BR WITH GAITBELT AND FWW. RODRIGUEZ WAS REMOVED TODAY. PT HAS BEEN IN A FIB 80s-120s, PARTICULARLY ELEVATING WITH ACTIVITY. BPs WERE TRENDING UP THIS AFTERNOON AND GOT OVER 200 SYSTOLIC, DOCTOR NOTIFIED AND PT WAS MEDICATED PER EMAR. SEE CHART. BPs HAVE SINCE REDUCED TO 140s SYSTOLIC. PT SATTING OVER 90% ON RM AIR WITH CONTINUOUS O2 MONITOR IN PLACE. PAIN HAS COME AND GONE FOR THE PATIENT T/O THIS SHIFT, CURRENTLY UNDER CONTROL PATIENT RESTS IN BED. ORAL INTAKE HAS BEEN ENCOURAGED ALL SHIFT, BUT PT STILL CONTINUES TO DECLINE MOST FOOD AND DRINK. ALTHOUGH SHE HAS BEEN SOMEWHAT ALTERED T/O THE SHIFT, IT SEEMS THAT THE PT'S MENTATION HAS SLOWED MORE THIS EVENING. SHE IS HAVING MORE DIFFICULTY EXPRESSING HERSELF, AND REPEATS THINGS MORE OFTEN. DOCTOR HAS BEEN MADE AWARE AND INSTRUCTED US TO CONTINUE TO MONITOR THE PT.
[2025-03-09] MEDS ORDERED: Lactobacil 2-S.Thermo-Bifido 1 1 Cap PO SCH (21:00)
[2025-03-10] VITALS (8 sets, daily range): BP systolic 151–186; BP diastolic 81–114
[2025-03-10 03:48] LABS: BASOPHILS ABSOLUTE AUTO 0.05 K/mm3 (0.00-0.23); BASOPHILS PERCENT AUTO 1 % (0-2); EOSINOPHILS ABSOLUTE AUTO 0.05 K/mm3 (0.00-0.68); EOSINOPHILS PERCENT AUTO 1 % (0-6); Hematocrit 37.5 % (33.0-51.0); Hemoglobin 11.9 g/dL (11.5-16.0); IMMATURE GRAN ABSOLUTE AUTO 0.07 K/mm3 (0.00-0.10); IMMATURE GRAN PERCENT AUTO 1 % (0-1); LYMPHOCYTES ABSOLUTE AUTO 1.09 K/mm3 (0.84-5.20); LYMPHOCYTES PERCENT AUTO 11 % (21-46); MONOCYTES ABSOLUTE AUTO 1.14 K/mm3 (0.16-1.47); MONOCYTES PERCENT AUTO 12 % (4-13); Mean Corpuscular HGB Conc 31.7 g/dL (31.5-36.5); Mean Corpuscular Volume 91 fL (80-100); NEUTROPHILS ABSOLUTE AUTO 7.17 K/mm3 (1.96-9.15); NEUTROPHILS PERCENT AUTO 75 % (41-73); NRBC ABSOLUTE 0.00 K/mm3 (0.00-0.02); NRBC Auto 0.0 /100 WBC (0.0-0.2); Platelet Count 288 K/mm3 (150-400); RDW Coefficient Variation 15.0 % (11.7-14.2); RDW Standard Deviation 50.3 fL (35.1-46.3)
[2025-03-10 04:06] LABS: Albumin, Blood 2.9 g/dL (3.4-5.0); Anion Gap 13 mmol/L (3-11); Blood Urea Nitrogen 48 mg/dL (8-24); CO2, Blood 28 mmol/L (21-32); Calcium, Blood 9.3 mg/dL (8.5-10.1); Chloride, Blood 102 mmol/L (98-108); Creatinine, Blood 1.12 mg/dL (0.40-1.00); Glucose, Blood 201 mg/dL (70-99); Magnesium, Blood 1.3 mg/dL (1.6-2.4); Phosphorus, Blood 2.6 mg/dL (2.5-4.9); Potassium, Blood 4.1 mmol/L (3.5-5.5); Sodium, Blood 139 mmol/L (136-145)
[2025-03-10] MEDS ORDERED: Magnesium Sulf 2 GM/Water 50ML 50 ML IV ONE ×2 (06:00→14:15)
--- NOTE | 2025-03-10 06:45 | NUR ---
SHIFT SUMMARY PATIENT ALERT AND ORIETNED X3. DID NOT REQUIRE ANY PAIN MEDICATION. ON ROOM AIR OVERNIGHT WITH SPO2 AT 90%. PATIENT MEDICATED PER EMAR FOR HYPERTENSION. WILL CONTINUE TO MONITOR. CALL LIGHT WITHIN REACH
[2025-03-10] MEDS ORDERED: Insulin Human Lispro 100 Units/ML 3ML Syringe SC SCH ×2 (14:15→16:30)
--- NOTE | 2025-03-10 18:03 | NUR ---
SHIFT SUMMARY PT A&O X 4 WHEN AWAKE, MENTATION LABILE AND WHAT APPEARS TO BE EXPRESSIVE APHASIA. DROWSY BUT FOLLOWS COMMANDS AND USES CALL LIGHT APPROPRIATELY. SATS MAINTAINED IN 90s ON 2L NC, NO REPORT OF SOB. PT IN AFIB, HR 70-90s, DENIES CHEST PAIN/PRESSURE. SBP EVELATED IN THE MORNING, MODIFICATIONS TO MEDICATION, BPs IMPROVED TOWARD END OF SHIFT. ALL OTHER VSS. PT HAS NOT BEEN EATING, ENCOURAGED PO INTAKE. CBGs ELEVATED DURING SHIFT, MEDIUM SLIDING SCALE ADDED, SEE EMAR. PT IS SBA USING FWW, TOLERATES WELL. PT UP TO RECLINER THIS SHIFT, WORKED WITH OT, SEE OT NOTES.
[2025-03-11] VITALS (7 sets, daily range): BP systolic 135–177; BP diastolic 70–100
[2025-03-11 03:35] LABS: BASOPHILS ABSOLUTE AUTO 0.05 K/mm3 (0.00-0.23); BASOPHILS PERCENT AUTO 1 % (0-2); EOSINOPHILS ABSOLUTE AUTO 0.26 K/mm3 (0.00-0.68); EOSINOPHILS PERCENT AUTO 3 % (0-6); Hematocrit 35.4 % (33.0-51.0); Hemoglobin 11.4 g/dL (11.5-16.0); IMMATURE GRAN ABSOLUTE AUTO 0.13 K/mm3 (0.00-0.10); IMMATURE GRAN PERCENT AUTO 1 % (0-1); LYMPHOCYTES ABSOLUTE AUTO 1.46 K/mm3 (0.84-5.20); LYMPHOCYTES PERCENT AUTO 15 % (21-46); MONOCYTES ABSOLUTE AUTO 1.17 K/mm3 (0.16-1.47); MONOCYTES PERCENT AUTO 12 % (4-13); Mean Corpuscular HGB Conc 32.2 g/dL (31.5-36.5); Mean Corpuscular Volume 91 fL (80-100); NEUTROPHILS ABSOLUTE AUTO 6.84 K/mm3 (1.96-9.15); NEUTROPHILS PERCENT AUTO 69 % (41-73); NRBC ABSOLUTE 0.00 K/mm3 (0.00-0.02); NRBC Auto 0.0 /100 WBC (0.0-0.2); Platelet Count 252 K/mm3 (150-400); RDW Coefficient Variation 14.7 % (11.7-14.2); RDW Standard Deviation 49.7 fL (35.1-46.3)
--- NOTE | 2025-03-11 06:14 | NUR ---
SHIFT SUMMARY PATIENT ALERT AND ORINETED X4. MEDICATED PER EMAR FOR PAIN AND HYPERTENTION. WAS ON 1 LITER O2 VIA NC WITH SPO2 >90%. RATE CONTROLLED ON TELE. WILL CONTINUE TO MONITOR. CALL LIGHT WITHIN REACH.
[2025-03-11 06:33] LABS: Albumin, Blood 2.9 g/dL (3.4-5.0); Anion Gap 10 mmol/L (3-11); Blood Urea Nitrogen 34 mg/dL (8-24); CO2, Blood 31 mmol/L (21-32); Calcium, Blood 9.0 mg/dL (8.5-10.1); Chloride, Blood 104 mmol/L (98-108); Creatinine, Blood 0.76 mg/dL (0.40-1.00); Glucose, Blood 155 mg/dL (70-99); Magnesium, Blood 1.5 mg/dL (1.6-2.4); Phosphorus, Blood 1.6 mg/dL (2.5-4.9); Potassium, Blood 3.3 mmol/L (3.5-5.5); Sodium, Blood 142 mmol/L (136-145)
[2025-03-11] MEDS ORDERED: Magnesium Sulf 2 GM/Water 50ML 50 ML IV ONE (07:10)
[2025-03-11] MEDS ORDERED: Sodium Phosphate 20 MM in Dextrose 5% 500 ML IV STA (07:18)
[2025-03-11] MEDS ORDERED: Isosorbide Mononitrate 30 MG TABCR PO SCH (07:55)
--- NOTE | 2025-03-11 18:17 | NUR ---
SHIFT SUMMARY PT A/OX4 AND COOPERATIVE OF CARE. PT ABLE TO EXPRESS NEEDS AND CALLS APPROPIATE. PT MORE ALERT AND COOPERATIVE TODAY THAN YESTERDAY. PT STARTED ON IMDUR THIS MORNING. BPS IMPROVED DURING THIS SHIFT BUT GRADUALLY INCREASING TOWARDS END OF SHIFT, SEE VITALS. PT TITRATED TO RA THIS SHIFT, SATS DOWN TO HIGH 80'S WHILE SLEEPING. 1L NC RE-APPLIED TO BRING SATS BACK TO 90'S. OTHER VSS THROUGHOUT SHIFT. NO REPORT OF CHEST PAIN/PRESSURE THROUGHOUT SHIFT. PT UP TO RECLINER THIS SHIFT, 1 PER ASSIST, TOLERATED WELL. PT WORKED WITH THERAPY, SEE THERAPIST NOTES. PT APPETITE BETTER TODAY, PT REQUESTING FOODS AND EATING PARTIAL AMOUNTS. NO NAUSEA REPORTED.
[2025-03-11] MEDS ORDERED: Insulin Glargine,Hum.Rec.Anlog 100 UNIT/ML 3MLSYR SC SCH (21:00)
[2025-03-12 04:12] VITALS: BP 161/96
[2025-03-12 04:21] LABS: BASOPHILS ABSOLUTE AUTO 0.08 K/mm3 (0.00-0.23); BASOPHILS PERCENT AUTO 1 % (0-2); EOSINOPHILS ABSOLUTE AUTO 0.44 K/mm3 (0.00-0.68); EOSINOPHILS PERCENT AUTO 4 % (0-6); Hematocrit 35.8 % (33.0-51.0); Hemoglobin 11.2 g/dL (11.5-16.0); IMMATURE GRAN ABSOLUTE AUTO 0.11 K/mm3 (0.00-0.10); IMMATURE GRAN PERCENT AUTO 1 % (0-1); LYMPHOCYTES ABSOLUTE AUTO 1.88 K/mm3 (0.84-5.20); LYMPHOCYTES PERCENT AUTO 17 % (21-46); MONOCYTES ABSOLUTE AUTO 1.38 K/mm3 (0.16-1.47); MONOCYTES PERCENT AUTO 12 % (4-13); Mean Corpuscular HGB Conc 31.3 g/dL (31.5-36.5); Mean Corpuscular Volume 94 fL (80-100); NEUTROPHILS ABSOLUTE AUTO 7.37 K/mm3 (1.96-9.15); NEUTROPHILS PERCENT AUTO 65 % (41-73); NRBC ABSOLUTE 0.00 K/mm3 (0.00-0.02); NRBC Auto 0.0 /100 WBC (0.0-0.2); Platelet Count 269 K/mm3 (150-400); RDW Coefficient Variation 14.7 % (11.7-14.2); RDW Standard Deviation 50.8 fL (35.1-46.3)
[2025-03-12 04:40] LABS: Albumin, Blood 2.8 g/dL (3.4-5.0); Anion Gap 6 mmol/L (3-11); Blood Urea Nitrogen 23 mg/dL (8-24); CO2, Blood 34 mmol/L (21-32); Calcium, Blood 9.0 mg/dL (8.5-10.1); Chloride, Blood 102 mmol/L (98-108); Creatinine, Blood 0.78 mg/dL (0.40-1.00); Glucose, Blood 105 mg/dL (70-99); Magnesium, Blood 1.6 mg/dL (1.6-2.4); Phosphorus, Blood 2.3 mg/dL (2.5-4.9); Potassium, Blood 3.1 mmol/L (3.5-5.5); Sodium, Blood 139 mmol/L (136-145)
[2025-03-12] MEDS ORDERED: Potassium Phosphate Dibasic 10 MM in Dextrose 5% 250 ML IV ONE (05:20)
--- NOTE | 2025-03-12 05:25 | NUR ---
SHIFT SUMMARY PT A&O X4, CALM, COOPERATIVE TO CARE. HR IN THE 70'S-80'S, AFIB. SHE DENIED ANY CP/PRESSURE, T/O NIGHT. SBP RANGING FROM 130'S-160'S. SpO2 >92% ON 1-2L VIA NC, SHE DENIES ANY SOB AT THIS TIME. PT TOLERATING PO INTAKE AND REPORTS APPETITE INCREASING SOME. NEPHRO FOLLOWING ORDERS PLACED FOR ELECTROLYTES REPLACEMENT. PT RESTING IN BED AT THIS TIME. CALL LIGHT IN REACH. WILL MONITOR PT AND REPORT TO ONCOMING RN.
[2025-03-12 07:10] VITALS: BP 166/101
--- NOTE | 2025-03-12 11:03 | NUR ---
VETERANS SERVICE OFFICER ASKED THIS RN TO CONTACT ASSEMBLER [employer] TO ASK IF PT IS ABLE TO RESUME LISINOPRIL. NEPHROLOGY CONTACTED AND APPROVED FOR PT TO RESTAT LISINOPRIL. HOME DOSE OF LISINOPRIL ORDERED.
[2025-03-12 11:22] VITALS: BP 153/72
[2025-03-12] MEDS ORDERED: AMLO10 PO (14:34)
[2025-03-12] MEDS ORDERED: ELIQUIS5 M2 PO (14:35)
[2025-03-12] MEDS ORDERED: CLOP75 PO (14:35)
[2025-03-12] MEDS ORDERED: Calcium Carbon500 MG PO (14:35)
[2025-03-12] MEDS ORDERED: Isosorbide Mono30 MG PO (14:36)
[2025-03-12] MEDS ORDERED: METO100ER PO (14:37)
[2025-03-12] MEDS ORDERED: POTCHL20ER PO (14:40)
--- NOTE | 2025-03-12 15:51 | NUR ---
DISCHARGE SUMMARY DISCHARGE PACKET GONE OVER WITH PT BY SPECIALIST PHYSICIANS AT 1540. PT DISHCARGED AT 1550 VIA WHEELCHAIR AND ON RA. PT PERSONAL BELONGINGS AND DISCHARGE PACKET WITH PT AT TIME OF DISCHARGE.
== END 2025-03-12 18:09 | disposition home or self-care (01) | DRG 281 ==
LOC: ER 11:11 → PCU 14:38 → MEDS 03-12 17:19 → PCU 03-12 17:26
PROVIDERS: Internal Medicine Nephrology; Student in an Organized Health Care Education/Training Program; ADMIT Internal Medicine
DX: I21.4 Non-ST elevation (NSTEMI) myocardial infarction (principal); E87.1 Hypo-osmolality and hyponatremia; I13.0 Hypertensive heart and chronic kidney disease with heart failure and stage 1 through stage 4 chronic kidney disease, or unspecified chronic kidney disease; N17.9 Acute kidney failure, unspecified; M62.82 Rhabdomyolysis; I48.91 Unspecified atrial fibrillation; E10.22 Type 1 diabetes mellitus with diabetic chronic kidney disease; E78.5 Hyperlipidemia, unspecified; N18.30 Chronic kidney disease, stage 3 unspecified; I25.10 Atherosclerotic heart disease of native coronary artery without angina pectoris; F51.04 Psychophysiologic insomnia; E66.9 Obesity, unspecified; I73.00 Raynaud's syndrome without gangrene; D86.9 Sarcoidosis, unspecified; M35.08 Sjogren syndrome with gastrointestinal involvement; K22.89 Other specified disease of esophagus; D72.829 Elevated white blood cell count, unspecified; E83.42 Hypomagnesemia; I50.9 Heart failure, unspecified; E83.51 Hypocalcemia; E87.8 Other disorders of electrolyte and fluid balance, not elsewhere classified; E86.9 Volume depletion, unspecified; R31.29 Other microscopic hematuria; E10.65 Type 1 diabetes mellitus with hyperglycemia; G89.29 Other chronic pain; D63.1 Anemia in chronic kidney disease; E10.51 Type 1 diabetes mellitus with diabetic peripheral angiopathy without gangrene; K74.60 Unspecified cirrhosis of liver; K21.9 Gastro-esophageal reflux disease without esophagitis; F32.A Depression, unspecified; F41.9 Anxiety disorder, unspecified; F43.10 Post-traumatic stress disorder, unspecified; E10.649 Type 1 diabetes mellitus with hypoglycemia without coma; E87.6 Hypokalemia; E83.39 Other disorders of phosphorus metabolism; Z68.30 Body mass index [BMI] 30.0-30.9, adult; Z95.1 Presence of aortocoronary bypass graft; Z86.73 Personal history of transient ischemic attack (TIA), and cerebral infarction without residual deficits; Z88.6 Allergy status to analgesic agent; Z88.8 Allergy status to other drugs, medicaments and biological substances; Z79.4 Long term (current) use of insulin; Z79.891 Long term (current) use of opiate analgesic; Z87.891 Personal history of nicotine dependence
CPT/HCPCS: 36415; 51702; 71045; 74018; 76770; 80047; 80053; 80069; 81001; 82010; 82330; 82533; 82550; 82652; 82803; 82947; 83690; 83735; 83880; 83970; 84100; 84443; 84484; 84550; 85014; 85025; 85520; 85610; 85730; 87086; 93005; 93010; 93306; 94760; 96361; 96374; 96375; 97116; 97162; 97530; A9270; J0360; J0612; J0696; J1644; J1815; J2270; J2405; J3010; J3475; J3480; J7030; J7060; J7070